=== PATIENT | male | born 1935 | race Caucasian/White ===

== ENCOUNTER → 2018-07-07 13:43 | Outpatient (CLI) | payer MEDICARE, OTHER, SELFPAY ==
--- NOTE | 2018-07-07 | DI.ECHO.S_ITS ---
[place] +---------+ Hospital +---------+ : : [address] : [address] : : : : [id number] : : : : Phone: [phone]+ Echocardiogram Report + + :Name: JUNE QUINTERO Study Date: 07/07/2018 Height: 63 in : :[facility] Weight: 190 lb : : Gender: Male BSA: 1.9 m2 : :: 1935 Age: 83 yrs BP: 130/44 mmHg: :Reason For Study: Murmur : : Performed By: Alicja Chatman : :Referring: DAVY THOMASON : + + Interpretation Summary Normal left ventricle size with ejection fraction 65-70%. Grade I diastolic dysfunction. Mildly dilated left atrium. Mild aortic regurgitation. Mild-moderately enlarged ascending aorta. Procedure: A two-dimensional transthoracic echocardiogram with color flow and Doppler was performed. The study quality was technically good. Most of the acoustic windows were suboptimal, but the best imaging was obtained from the subcostal window. The patient was in normal sinus rhythm during the exam. Left Ventricle: The left ventricle is normal in size. There is normal left ventricular wall thickness. The ejection fraction is estimated to be 65-70%. There are no focal wall motion abnormalities. Diastolic parameters suggest a relaxation abnormality of the left ventricle, consistent with probable normal filling pressures. Right Ventricle: The right ventricle grossly appears normal in size with probable normal systolic function. Atria: The left atrium is mildly dilated. Right atrial size is normal. The interatrial septum is intact with no evidence for an atrial septal defect. Mitral Valve: The mitral valve is normal in structure and function. There is no mitral regurgitation noted. Aortic Valve: The aortic valve is trileaflet. The aortic valve opens well. There is mild aortic regurgitation. Tricuspid Valve: The tricuspid valve is normal in structure and function. There is a trace or physiologic amount of tricuspid regurgitation. The right ventricular systolic pressure is estimated to be at least 32 mmHg based on an estimated right atrial pressure of 3 mm Hg. Pulmonic Valve: The pulmonic valve is not well seen, but is grossly normal. There is a trace or physiologic amount of pulmonic regurgitation. Great Vessels: The aortic root is normal size. The ascending aorta is mild- moderately enlarged. The aortic arch is normal in size. The IVC is of normal diameter and collapses greater than 50% with a sniff. This suggests a low right atrial pressure of 3 mm Hg. Pericardium/ Pleura There is no pericardial effusion. There is no pleural effusion. MMode/2D Measurements & Calculations LVIDd: 5.2 cm Ao root diam: 3.6 cm LVIDs: 2.4 cm Aortic Jxn: 2.9 cm FS: 55.1 % asc Aorta Diam: 4.1 cm IVSd: 0.85 cm Ao Arch Diam (Prox Trans): 2.8 cm LVPWd: 0.97 cm LV jewell. diameter/BSA (cm/m^2): 2.8 LV sys. diameter/BSA (cm/m^2): 1.2 LA dimension: 4.0 cm RA long axis: 5.3 cm LA A2 area: 22.9 cm2 RA area: 20.5 cm2 LA A4 area: 23.4 cm2 RA vol: 67.2 ml LA length (vol): 5.4 cm RA : 35.5 ml/m2 LA vol: 83.9 ml IVC diam: 1.8 cm LA vol index: 44.3 ml/m2 RVDd major: 5.8 cm RVD1 (basal): 3.7 cm RVD2 (mid): 2.6 cm Doppler Measurements & Calculations Ao V2 max: 164.7 cm/sec MV E max hany: 102.9 cm/sec Ao V2 mean: 99.8 cm/sec MV A max hany: 130.7 cm/sec Ao max P.8 mmHg MV E/A: 0.79 Ao mean P.9 mmHg Med Peak E' Hany: 7.1 cm/sec Ao V2 VTI: 32.6 cm E/E' med: 14.6 Lat Peak E' Hany: 8.7 cm/sec E/E' lat: 11.8 E/e' average: 13.2 MV dec time: 0.22 sec MV P1/2t: 66.3 msec TR max hany: 269.8 cm/sec MV P1/2t max hany: 103.4 cm/sec TR max P.1 mmHg MVA(P1/2t): 3.3 cm2 PA V2 max: 102.3 cm/sec PA V2 mean: 73.6 cm/sec PA mean P.4 mmHg PA Accel Time: 0.21 sec Electronically signed by: Micheline Lopez on Reading Physician:07/07/2018 04:02 PM
== END ==
PROVIDERS: Family Provider Internal Medicine; PCP Internal Medicine; Visit Provider Internal Medicine
DX: I35.1 Nonrheumatic aortic (valve) insufficiency (principal); R01.1 Cardiac murmur, unspecified; I77.810 Thoracic aortic ectasia
CPT/HCPCS: 93306

== ENCOUNTER → 2019-10-16 06:41 | Outpatient (CLI) | payer MEDICARE, OTHER, SELFPAY ==
--- NOTE | 2019-10-16 | DI.ECHO.S_ITS ---
[place] +---------+ Hospital +---------+ : : [address] : : : : [id number] : : : : Phone: [phone]+ Echocardiogram Report + + :Name: JUNE QUINTERO Study Date: 10/16/2019 Height: 73 in : :[facility] Weight: 196 lb : : Gender: Male BSA: 2.1 m2 : :: 1935 Age: 84 yrs BP: 150/68 mmHg: :Reason For Study: THORACIC AROTIC ECTASIA : :Ordering Physician: Carina Lima : :Zafar Performed By: Valeria Foster : :Referring: CARINA STEPHEN : + + Interpretation Summary 1) Normal left ventricular thickness, size, wall motion, and systolic function (EF 65-70%). 2) Normal right ventricular size and function. 3) No significant valvular abnormalities. 4) The ascending aorta is mildly enlarged at 4.1cm. 5) Hypertension present during the study (BP 150/68mmHg). 6) Compared to the Echo done 07/07/2018, no significant change. Procedure: A two-dimensional transthoracic echocardiogram with color flow and Doppler was performed. The study quality was technically adequate. Comparison is made with the echocardiogram of . The patient was in normal sinus rhythm during the exam. Left Ventricle: The left ventricle is normal in size and wall thickness. The ejection fraction is estimated to be 65-70%. Left ventricular systolic function is normal without focal wall motion abnormalities. Right Ventricle: The right ventricle is not well visualized. The right ventricle is grossly normal size. The right ventricular systolic function is normal. Atria: Both atria are normal in size. There is no Doppler evidence for an interatrial shunt. Mitral Valve: The mitral valve is normal in structure and function. There is trace mitral regurgitation. Aortic Valve: The aortic valve is trileaflet. The aortic valve opens well. There is no aortic valve stenosis. There is mild aortic regurgitation. Tricuspid Valve: The tricuspid valve is normal in structure and function. There is mild tricuspid regurgitation. The right ventricular systolic pressure is estimated to be at least 25 mmHg based on an estimated right atrial pressure of 3 mm Hg. Pulmonic Valve: The pulmonic valve is normal in structure and function. There is a trace or physiologic amount of pulmonic regurgitation. Great Vessels: The aortic root is normal size. The ascending aorta is mildly enlarged. The IVC is of normal diameter and collapses greater than 50% with a sniff. This suggests a low right atrial pressure of 3 mm Hg. Pericardium/ Pleura There is no pericardial effusion. There is no pleural effusion. MMode/2D Measurements & Calculations LVIDd: 5.3 cm LVOT diam: 2.1 cm LVIDs: 3.3 cm Ao root diam: 3.2 cm FS: 38.4 % asc Aorta Diam: 4.1 cm EPSS: 0.50 cm IVSd: 0.83 cm LVPWd: 0.96 cm LV jewell. diameter/BSA (cm/m^2): 2.5 LV sys. diameter/BSA (cm/m^2): 1.5 LA A2 area: 15.6 cm2 RA long axis: 4.3 cm LA A4 area: 16.7 cm2 RA area: 13.4 cm2 LA length (vol): 5.0 cm RA vol: 35.2 ml LA vol: 44.4 ml RA : 16.5 ml/m2 LA vol index: 20.8 ml/m2 IVC diam: 1.1 cm TAPSE: 2.2 cm Doppler Measurements & Calculations Ao V2 max: 137.3 cm/sec LVOT Max Hany: 137.1 cm/sec Ao V2 mean: 85.5 cm/sec LV V1 max P.5 mmHg Ao max P.5 mmHg LV V1 VTI: 27.7 cm Ao mean P.5 mmHg CLAIRE(I,D): 3.4 cm2 Ao V2 VTI: 28.1 cm CALIRE(V,D): 3.4 cm2 sev ratio: 0.99 CLAIRE indexed to BSA (cm^2/m^2): 1.6 MV E max hany: 99.9 cm/sec TR max hany: 236.2 cm/sec MV A max hany: 109.6 cm/sec TR max P.3 mmHg MV E/A: 0.91 PA V2 max: 93.7 cm/sec Med Peak E' Hany: 9.2 cm/sec PA V2 mean: 62.0 cm/sec E/E' med: 10.9 PA mean P.8 mmHg Lat Peak E' Hany: 8.5 cm/sec E/E' lat: 11.7 E/e' average: 11.3 MV dec time: 0.18 sec SV(LVOT): 95.2 ml Reading Physician:10:04 AM
[2019-10-16 09:07] LABS: Cholesterol 183 mg/dL (140-199); HDL Cholesterol 30 mg/dL (40-60); LDL Cholesterol Calculated 81 mg/dL (<100); Triglycerides 360 mg/dL (35-150)
== END ==
PROVIDERS: Family Provider Internal Medicine; PCP Internal Medicine; Referring Provider Internal Medicine Cardiovascular Disease; Visit Provider Internal Medicine Cardiovascular Disease
DX: I08.2 Rheumatic disorders of both aortic and tricuspid valves (principal); I77.810 Thoracic aortic ectasia; I10 Essential (primary) hypertension
CPT/HCPCS: 36415; 80061; 93306

== ENCOUNTER → 2019-11-22 13:13 | Outpatient (CLI) | payer MEDICARE, OTHER, SELFPAY ==
[2019-11-22 15:07] LABS: Add Manual Diff / Slide Review NO; Basophils Absolute Auto 0 /uL (0-100); Basophils Percent Auto 0.4 % (0-2); Eosinophils Absolute Auto 200 /uL (0-450); Eosinophils Percent Auto 2.7 % (2-4); Hematocrit 42.9 % (41-53); Hemoglobin 14.8 g/dL (13.5-17.5); Lymphocytes Absolute Auto 2400 /uL (1100-4500); Lymphocytes Percent Auto 34.3 % (25-40); Mean Corpuscular HGB Conc 34.4 % (30-36); Mean Corpuscular Hemoglobin 31.7 PG (26-34); Mean Corpuscular Volume 91.9 fL (80-100); Monocytes Absolute Auto 900 /uL (0-900); Monocytes Percent Auto 12.6 % (3-14); Neutrophils Absolute Auto 3500 /uL (1500-7000); Platelet Count 226 X10^3/uL (150-400); Red Blood Cell Count 4.67 X10^6/uL (4.5-5.9); Red Cell Distribution Width 13.4 % (11.6-14.8); White Blood Cell Count 7.1 X10^3/uL (4.5-11.0)
[2019-11-22 15:15] LABS: BUN Creatinine Ratio 21.3 (6-22); Blood Urea Nitrogen 19 mg/dL (9-20); Calcium 9.4 mg/dL (8.4-10.2); Carbon Dioxide 30 mmol/L (22-32); Chloride 103 mmol/L (98-107); Estimated Glomerular Filt Rate > 60.0 mL/min (>60); Glucose 97 mg/dL (80-110); HEMOLYSIS < 15 (0-50); Potassium 4.4 mmol/L (3.4-5.1); Sodium 138 mmol/L (137-145)
[2019-11-22 15:16] LABS: C-Reactive Protein Quant < 0.5 mg/dL (<1.0)
[2019-11-22 15:49] LABS: Erythrocyte Sedimentation Rate 8 MM/HR (0-15)
== END ==
PROVIDERS: Family Provider Internal Medicine; PCP Internal Medicine; Referring Provider Physician Assistant; Visit Provider Physician Assistant
DX: M79.675 Pain in left toe(s) (principal)
CPT/HCPCS: 36415; 80048; 84550; 85025; 85651; 86140

== ENCOUNTER 2020-04-12 08:24 | Emergency (ER) | payer MEDICARE, OTHER, SELFPAY ==
[2020-04-12 08:38] VITALS: BP 133/60; PULSE 66; RESP 18; TEMP 36.5; O2SAT 97; BMI 25.4
--- NOTE | 2020-04-12 08:53 | ED_ITS ---
HPI - Extremity Problem General Chief complaint: Extremity Problem,Nontraumatic Stated complaint: LT FOOT SWOLLEN/ PAIN Time Seen by Provider: 04/12/20 08:49 Source: patient Mode of arrival: Family Vehicle Limitations: no limitations History of Present Illness HPI Narrative: The patient is an 85-year-old male who presents with left foot swelling which started yesterday he is concerned he may have a blood clot. Of DVT he has not had any recent travel he has no calf pain no lower leg swelling redness or fever. He also thought it might be gout which he typically does get in his great toe however he has no erythema or pain in that area. He denies any injury. Complaint: extremity swelling Onset (ago): day(s) Location: right and lower extremity (Foot) Related Data Allergies Allergy/AdvReac Type Severity Reaction Status Date / Time No Known Drug Allergies Allergy Verified 04/12/20 08:42 Review of Systems Review of Systems Narrative: GENERAL: Denies chills,fever HEENT: Denies throat pain RESPIRATORY: Denies dyspnea, cough, wheezing CARDIOVASCULAR: Denies chest pain, palpitations GASTROINTESTINAL: Denies nausea, vomiting MUSCULOSKELETAL: Left foot swelling SKIN: No rash, no laceration, no pruritus NEUROLOGIC: Denies weakness, dizziness, headache, numbness 8 point review of systems is negative except for those stated above and HPI Patient History Social History Smoking Status: Never smoker Smoking Status: Never smoker alcohol intake frequency: 0-2 drinks per day Substance Use Type: does not use Exam Initial Vital Signs Initial Vital Signs: Vital Signs Temperature 97.7 F 04/12/20 08:38 Pulse Rate 66 04/12/20 08:38 Respiratory Rate 18 04/12/20 08:38 Blood Pressure 133/60 04/12/20 08:38 Pulse Oximetry 97 04/12/20 08:38 GENERAL: Well-appearing, well-nourished and in no acute distress. CARDIOVASCULAR: peripheral pulses in tact, cap refill <2 sec RESPIRATORY: No respiratory distress, speaks in full sentences without difficulty EXTREMITIES: Normal range of motion, no clubbing or edema. Neurovascularly intact. Left lower extremity he has no appreciable swelling left foot is non erythematous nonpainful good strong distal pedal pulse. No ankle deformity. No calf pain no lower leg swelling. NEUROLOGICAL: Cranial nerves II through XII grossly intact. Normal gait and speech. SKIN: Warm, dry, no petechiae, no rashes or lesions. Course Vital Signs Vital signs: Vital Signs - 8 hr 04/12/20 08:38 Temperature 97.7 F Pulse Rate 66 Respiratory Rate 18 Blood Pressure 133/60 Pulse Oximetry 97 MDM - Extremity (Nontraumatic) MDM Narrative Medical decision making narrative: Patient has had no injury he has no risk fa ctors for DVT. He has minimal swelling if any of his left foot. There is no erythema. At this time I see no need for any imaging or further testing or treatment. I recommend monitoring. Discharge Plan Departure Patient Disposition: Home Clinical Impression: Worried well Discharge Date/Time: 04/12/20 09:08 Instructions: DI for Foot Pain Activity Restrictions/Additional Instructions: *You have been diagnosed with at this time no concern for blood clot *What to do: At this time you have small amount of swelling on her left foot. I recommend elevating and icing if needed. Please monitor for worsening symptoms such as redness, significant increase in swelling, calf pain or leg pain *Continue to take medications as directed *Follow up with your primary care provider in 2-3 days *Return to ER if you should have any new, worsening or concerning symptoms Referrals: Vince Hagan MD [Primary Care Provider] -
== END 2020-04-12 09:08 | disposition home or self-care (01) ==
LOC: ED 09:11
PROVIDERS: Emergency Provider Emergency Medicine; Family Provider Internal Medicine; PCP Internal Medicine
DX: R60.9 Edema, unspecified (principal)
CPT/HCPCS: 99281

== ENCOUNTER → 2020-04-15 19:06 | Outpatient (ROUT) | payer MEDICARE, OTHER, SELFPAY ==
[2020-04-15 19:21] LABS: Alanine Aminotransferase 19 IU/L (<50); Albumin 4.3 g/dL (3.5-5.0); Albumin Globulin Ratio 1.5 (1.0-2.8); Alkaline Phosphatase 56 U/L (38-126); Aspartate Aminotransferase 28 IU/L (17-59); BUN Creatinine Ratio 23.9 (6-22); Bilirubin Total 0.8 mg/dL (0.2-1.3); Blood Urea Nitrogen 21 mg/dL (9-20); Calcium 9.4 mg/dL (8.4-10.2); Carbon Dioxide 32 mmol/L (22-32); Chloride 104 mmol/L (98-107); Estimated Glomerular Filt Rate > 60.0 mL/min (>60); Globulin 2.9 g/dL (1.7-4.1); Glucose 109 mg/dL (80-110); HEMOLYSIS < 15 (0-50); Potassium 4.7 mmol/L (3.4-5.1); Sodium 140 mmol/L (137-145); Total Protein 7.2 g/dL (6.3-8.2); Uric Acid 7.8 mg/dL (3.5-8.5)
== END ==
PROVIDERS: Family Provider Internal Medicine; PCP Internal Medicine; Visit Provider Internal Medicine
DX: M10.9 Gout, unspecified (principal); M79.89 Other specified soft tissue disorders
CPT/HCPCS: 80053; 84550

== ENCOUNTER → 2020-04-18 10:47 | Outpatient (CLI) | payer MEDICARE, OTHER, SELFPAY ==
--- NOTE | 2020-04-18 | DI.US.S_ITS ---
PROCEDURE: US PERIPH VENOUS LOW EXTREM LT INDICATIONS: SWELLING OF LEFT FOOT TECHNIQUE: Real-time imaging, as well as color and pulse Doppler interrogation, were performed of the lower extremity deep veins from the inguinal ligament to the popliteal fossa. COMPARISON: [facility], CR, XR FOOT LT MIN 3V, 04/18/2020, 11:08. FINDINGS: The common femoral, femoral and popliteal veins are normally compressible, and free of intraluminal thrombus. Color and pulse Doppler demonstrate normal phasic intraluminal flow. There is normal augmentation response to distal compression maneuver. IMPRESSION: Negative for deep venous thrombosis. Dictated by: Kirit Thomson M.D. on 04/18/2020 at 11:10 Approved by: Kirit Thomson M.D. on 04/18/2020 at 11:11
--- NOTE | 2020-04-18 | DI.RAD.S_ITS ---
PROCEDURE: XR FOOT LT MIN 3V INDICATIONS: Other specified soft tissue disorders and Lt ft pn TECHNIQUE: 3 views of the foot were acquired. COMPARISON: None. FINDINGS: Bones: There is an irregular appearance at the base of the 5th metatarsal. Calcaneal spur is present. Soft tissues: No tibiotalar joint effusion. Achilles tendon appears normal. IMPRESSION: Irregular appearance at the base of the 5th metatarsal suggestive of old injury. Dictated by: Amna Roman M.D. on 04/18/2020 at 15:42 Approved by: Amna Roman M.D. on 04/18/2020 at 15:42
== END ==
PROVIDERS: Family Provider Internal Medicine; PCP Internal Medicine; Referring Provider Internal Medicine; Visit Provider Internal Medicine
DX: R22.42 Localized swelling, mass and lump, left lower limb (principal)
CPT/HCPCS: 73630; 93971

== ENCOUNTER → 2020-05-05 07:55 | Outpatient (CLI) | payer MEDICARE, OTHER, SELFPAY ==
[2020-05-05 09:06] LABS: Uric Acid 6.9 mg/dL (3.5-8.5)
== END ==
PROVIDERS: Family Provider Internal Medicine; PCP Internal Medicine; Referring Provider Internal Medicine; Visit Provider Internal Medicine
DX: M10.00 Idiopathic gout, unspecified site (principal)
CPT/HCPCS: 36415; 84550

== ENCOUNTER → 2020-06-24 16:04 | Outpatient (CLI) | payer MEDICARE, OTHER, SELFPAY ==
[2020-06-24] MEDS: COVID-19 VACC #1, MRNA(MOD) 100 MCG/0.5 ML VIAL IM (16:24)
== END ==
PROVIDERS: Family Provider Internal Medicine; PCP Internal Medicine; Visit Provider Internal Medicine
DX: Z23 Encounter for immunization (principal)
CPT/HCPCS: 0011A; 91301

== ENCOUNTER → 2020-07-23 14:24 | Outpatient (CLI) | payer MEDICARE, OTHER, SELFPAY ==
[2020-07-23] MEDS: COVID-19 VACC #2, MRNA(MOD) 100 MCG/0.5 ML VIAL IM (14:34)
== END ==
PROVIDERS: Family Provider Internal Medicine; PCP Internal Medicine; Visit Provider Internal Medicine
DX: Z23 Encounter for immunization (principal)
CPT/HCPCS: 0012A; 91301

== ENCOUNTER → 2021-05-06 12:15 | Outpatient (CLI) | payer MEDICARE, OTHER, SELFPAY ==
[2021-05-06 14:36] LABS: BUN Creatinine Ratio 17.2 (6-22); Blood Urea Nitrogen 17 mg/dL (9-20); Calcium 9.4 mg/dL (8.4-10.2); Carbon Dioxide 30 mmol/L (22-32); Chloride 101 mmol/L (98-107); Cholesterol 199 mg/dL (140-199); Estimated Glomerular Filt Rate > 60.0 mL/min (>60); Glucose 109 mg/dL (80-110); HDL Cholesterol 44 mg/dL (40-60); HEMOLYSIS < 15 (0-50); LDL Cholesterol Calculated 124 mg/dL (<100); Potassium 4.5 mmol/L (3.4-5.1); Sodium 140 mmol/L (137-145); Triglycerides 154 mg/dL (35-150)
== END ==
PROVIDERS: Family Provider Internal Medicine; PCP Internal Medicine; Referring Provider Internal Medicine; Visit Provider Internal Medicine
DX: I10 Essential (primary) hypertension (principal); E78.1 Pure hyperglyceridemia
CPT/HCPCS: 36415; 80048; 80061

== ENCOUNTER → 2021-10-12 14:56 | Outpatient (CLI) | payer MEDICARE, OTHER, SELFPAY ==
--- NOTE | 2021-10-12 | DI.ECHO.S_ITS ---
[place] +---------+ Hospital +---------+ : : [address] : [address] : : : : [id number] : : : : Phone: [phone]+ Echocardiogram Report + + :Name: JUNE QUINTERO Study Date: 10/12/2021 Height: 73 in : :[facility]: Weight: 188 lb : : Gender: Male BSA: 2.1 m2 : :: 1935 Age: 86 yrs BP: 182/86 mmHg: :Reason For Study: Aortic, Ascending Aneurysm : :Ordering Physician: ALIDA, : :NEFTALI Welch Performed By: Bennie Chan : :Referring: NEFTALI IRWIN : + + Interpretation Summary 1) Normal left ventricular thickness, size, wall motion, and systolic function (EF 60-65%). 2) Normal right ventricular size and function. 3) No significant valvular abnormalities. 4) The ascending aorta is mildly enlarged at 4.0cm. 5) Hypertension present during the study (BP 182/86mm Hg). 6) Compared to the Echo done 10/16/2019, no significant change. Procedure: A two-dimensional transthoracic echocardiogram with color flow and Doppler was performed. The study quality was technically adequate. Comparison is made with the echocardiogram of 10/16/2019. Left Ventricle: The left ventricle is normal in size. Left ventricular wall thickness is mildly increased. Left ventricular systolic function is normal. The ejection fraction is estimated to be 60-65%. There are no focal wall motion abnormalities. Diastolic function could not be accurately assessed due to contradictory data. Right Ventricle: The right ventricle is normal in size and function. Atria: Both atria are normal in size. The interatrial septum grossly appears intact with no obvious evidence for an atrial septal defect. Mitral Valve: The mitral valve is normal in structure and function. There is trace mitral regurgitation. Aortic Valve: The aortic valve is normal in structure and function. There is no aortic valve stenosis. There is trace aortic regurgitation. Tricuspid Valve: The tricuspid valve is normal in structure and function. There is trace tricuspid regurgitation. Pulmonary artery pressures cannot be estimated because of the lack of a measurable TR jet velocity. Pulmonic Valve: The pulmonic valve is normal in structure and function. There is no pulmonic valvular regurgitation. Great Vessels: The aortic root is normal size. The ascending aorta is mildly enlarged. The IVC is of normal diameter and collapses greater than 50% with a sniff. This suggests a low right atrial pressure of 3 mm Hg. Pericardium/ Pleura There is no pericardial effusion. There is no pleural effusion. MMode/2D Measurements & Calculations LVIDd: 4.9 cm LVOT diam: 2.0 cm LVIDs: 2.7 cm Ao root diam: 3.4 cm FS: 44.9 % asc Aorta Diam: 4.0 cm IVSd: 1.2 cm LVPWd: 1.2 cm LV jewell. diameter/BSA (cm/m^2): 2.3 LV sys. diameter/BSA (cm/m^2): 1.3 LA dimension: 3.2 cm RA long axis: 4.5 cm LA A2 area: 14.3 cm2 LA A4 area: 14.8 cm2 LA length (vol): 4.5 cm LA vol: 40.1 ml LA vol index: 19.1 ml/m2 TAPSE_phl: 2.9 cm Doppler Measurements & Calculations Ao V2 max: 152.0 cm/sec LVOT Max Hany: 143.0 cm/sec Ao V2 mean: 105.0 cm/sec LV V1 max P.2 mmHg Ao max P.0 mmHg LV V1 VTI: 29.3 cm Ao mean P.0 mmHg CLAIRE(I,D): 2.9 cm2 Ao V2 VTI: 32.1 cm CLAIRE(V,D): 3.0 cm2 sev ratio: 0.91 CLAIRE indexed to BSA (cm^2/m^2): 1.4 MV E max hany: 99.4 cm/sec SV(LVOT): 92.0 ml MV A max hany: 108.0 cm/sec MV E/A: 0.92 Med Peak E' Hany: 7.5 cm/sec E/E' med: 13.3 Lat Peak E' Hany: 9.2 cm/sec E/E' lat: 10.8 E/e' average: 12.1 MV dec time: 0.19 sec AV VR_phl: 0.94 MV P1/2t-pr_phl: 55.0 msec CLAIRE(VTI)/BSA_phl: 1.4 Reading Physician:04:49 PM
== END ==
PROVIDERS: Family Provider Internal Medicine; PCP Internal Medicine; Referring Provider Internal Medicine; Visit Provider Internal Medicine
DX: I77.810 Thoracic aortic ectasia (principal); I77.89 Other specified disorders of arteries and arterioles
CPT/HCPCS: 93306

== ENCOUNTER 2021-10-16 07:45 | Inpatient (IN) | payer MEDICARE, OTHER, SELFPAY ==
[2021-10-16] VITALS (17 sets, daily range): BP systolic 128–192; BP diastolic 60–90; PULSE 74–95; RESP 17–18; TEMP 36.8–36.9; O2SAT 93–99; BMI 25.2
--- NOTE | 2021-10-16 | DI.CT.S_ITS ---
PROCEDURE: CT FOOT RIGHT WITH CON INDICATIONS: RIGHT FOOT INFECTION TECHNIQUE: Noncontrast 1-1.5 mm axial sections acquired from above the tibiotalar joint to the bottom of the calcaneus, with coronal and sagittal reformats. COMPARISON: None. FINDINGS: Image quality: Excellent. Bones: Right foot alignment is anatomic. No acute right foot fracture or dislocation is seen. No suspicious intraosseous lesion. Osteoarthritic changes are noted throughout left ankle and foot with joint space narrowing, subchondral sclerosis and small marginal osteophyte formation more prominent involving talonavicular joint and TMT joints. Small plantar and dorsal calcaneal enthesophytes are seen. No bony erosive changes. No suspicious intraosseous lesion. Soft tissues: Diffuse soft tissue edema and swelling surrounding ankle joint extending to right foot with skin thickening and underlying soft tissue edema and fluid over plantar aspect of 2nd and 3rd MTP joints. No discrete peripherally enhancing drainable fluid collection is noted. There is no full-thickness extensor or flexor tendon rupture. No abnormal soft tissue calcifications. Achilles tendon is intact. Plantar fascia is intact. IMPRESSION: 1. Extensive cellulitis in right ankle and foot as described above. No discrete drainable abscess collection is seen. 2. Right foot and ankle joint osteoarthritis. No fracture or dislocation. No evidence of osteomyelitis. Dictated by: Adan Virgen M.D. on 10/16/2021 at 16:12 Approved by: Adan Virgen M.D. on 10/16/2021 at 16:17
--- NOTE | 2021-10-16 09:10 | ED_ITS ---
HPI - Skin/Abscess/Foreign Bdy General Chief complaint: Skin/Abscess/Foreign Body Stated complaint: infected rt foot Time Seen by Provider: 10/16/21 08:29 History of Present Illness HPI narrative: Patient is an 86-year-old male history of hypertension and gout presenting today with right foot infection. He was seen and evaluated yesterday at walk-in clinic started on couple of overnight it got significantly worse. He has had a callus on the bottom of his foot for number of weeks yesterday started having some erythema and warmth the of the foot. However today he woke up with blis ters on his 2nd and 3rd toe and significant swelling over most of the top of his foot. No history of MRSA. He has had chills for the last day or so. No fever. Related Data Home Medications Medication Instructions Recorded Confirmed allopurinol 100 mg tablet 100 mg PO DAILY 10/15/21 10/16/21 amlodipine 10 mg tablet 10 mg PO DAILY 10/15/21 10/16/21 Previous Rx's Medication Instructions Recorded cephalexin 500 mg capsule 500 mg PO QID 10 Days #40 cap 10/15/21 Allergies Allergy/AdvReac Type Severity Reaction Status Date / Time No Known Drug Allergies Allergy Verified 10/16/21 08:10 Review of Systems Review of Systems Narrative: GENERAL: Denies chills, fatigue, malaise, fever, sweats, travel HEENT: Denies sinus pain, ear pain, sore throat, difficulty swallowing, neck pain RESPIRATORY: Denies dyspnea, cough, wheezing, hemoptysis, sputum. CARDIOVASCULAR: Denies chest pain, palpitations, orthopnea, edema GASTROINTESTINAL: Denies nausea, vomiting, abdominal pain, diarrhea, constipation, melena. : Denies dysuria, frequency, incontinence, hematuria, urinary retention, flank pain. MUSCULOSKELETAL: Denies weakness, joint pain, or bony pain SKIN: See HPI NEUROLOGIC: Denies weakness, dizziness, headache, numbness, change in speech, confusion PSYCHIATRIC: No concerning psychosocial issues. 12 point review of systems is negative except for those stated above and HPI Patient History Medical History Gout Hypertension Social History household members: spouse Smoking Status: Never smoker Smoking Status: Never smoker alcohol intake frequency: 0-2 drinks per day Substance Use Type: does not use Exam Initial Vital Signs Initial Vital Signs: Vital Signs Temperature 98.4 F 10/16/21 08:11 Pulse Rate 83 10/16/21 08:11 Respiratory Rate 18 10/16/21 08:11 Blood Pressure 137/83 10/16/21 08:11 Pulse Oximetry 99 10/16/21 08:11 GENERAL: Alert pleasant [id number] 86-year-old male HEENT: Head atraumatic,EOMI, pupils reactive, face symmetric, moist mucous membranes CARDIOVASCULAR: Regular rate and rhythm without murmurs, rubs or gallops. RESPIRATORY: Breath sounds equal bilaterally, no wheezes rales or rhonchi. ABDOMEN: Soft, nontender. Normoactive bowel sounds all 4 quadrants. No guarding or rebound. EXTREMITIES: Normal range of motion, no clubbing or edema. Neurovascularly intact NEUROLOGICAL: Alert and oriented x4.Normal gait and speech. SKIN: Right foot erythematous most of the top. Black blisters at 2nd and 3rd metatarsal Course Orders Ordered: ED Orders 10/16/21 09:30 CBC Auto Diff [Complete Blood Count AUTO DIFF] Stat CMP [Comprehensive Metabolic Panel] Stat Lactate (Lactic Acid) Stat Procalcitonin Stat 10/16/21 10:19 Blood Culture Stat 10/16/21 10:39 COVID19 -Nasal RAPID/Pre-Proc Stat 10/16/21 11:55 Wound Culture and Gram Stain Stat Acetaminophen (Acetaminophen 325 Mg Tablet) 650 mg PO Q4HR PRN PRN Reason: Fever > 100.4 Allopurinol (Allopurinol 100 Mg Tablet) 100 mg PO DAILY [facility] Amlodipine Besylate (Amlodipine 5 Mg Tablet) 10 mg PO DAILY [facility] Bisacodyl (Bisacodyl 10 Mg Supp) 10 mg OR DAILY PRN PRN Reason: Constipation Clindamycin HCl (Clindamycin 150 Mg Capsule) 300 mg PO Q8HR [facility] Enoxaparin Sodium (Enoxaparin 40 Mg/0.4 Ml Syringe) 40 mg SUBCUT DAILY [facility] Famotidine (Famotidine 20 Mg Tablet) 40 mg PO BEDTIME [facility] Cefepime HCl 1 gm/ Sodium (Chloride) 100 mls @ 200 mls/hr IV Q12H [facility] Last Admin: 10/16/21 15:56 Dose: 200 mls/hr Documented by: VIRINOTT Doxycycline Hyclate 100 mg/ (Sodium Chloride) 100 mls @ 100 mls/hr IV Q12H [facility] Lactobacillus Acidophilus (Lactobacillus Acidophilus Tablet) 1 each PO TIDWM [facility] Morphine Sulfate (Morphine 2 Mg/Ml Inj) 2 mg IV Q4H PRN PRN Reason: Breakthrough pain only (8-10) Naloxone HCl (Naloxone 0.4 Mg/Ml Vial) 0.2 mg IV Q2MIN PRN PRN Reason: Opiate Reversal Ondansetron HCl (Ondansetron 4 Mg/2 Ml Inj) 4 mg IV Q8HR PRN PRN Reason: Nausea And Vomiting Sennosides (Sennosides 8.6 Mg Tablet) 17.2 mg PO BEDTIME [facility] Tramadol HCl (Tramadol 50 Mg Tablet) 50 mg PO Q4H PRN PRN Reason: Pain, Moderate (4-6) Discontinued Medications Ceftriaxone Sodium 1,000 mg/ (Sodium Chloride) 100 mls @ 200 mls/hr IV NOW ONE Stop: 10/16/21 09:12 Last Infusion: 10/16/21 11:00 Dose: 0 mls/hr Documented by: Admin: 10/16/21 10:20 Dose: 200 mls/hr Documented by: VERONA Vancomycin HCl/Dextrose (Vancomycin) 1,500 mg in 300 mls @ 200 mls/hr IV NOW ONE Stop: 10/16/21 11:30 Last Infusion: 10/16/21 12:47 Dose: 0 mls/hr Documented by: Admin: 10/16/21 10:59 Dose: 200 mls/hr Documented by: VERONA Vital Signs Vital signs: Vital Signs - 8 hr 10/16/21 09:30 10/16/21 10:29 10/16/21 10:30 Pulse Rate 83 83 82 Respiratory Rate 18 Blood Pressure 141/66 H Pulse Oximetry 98 98 98 10/16/21 10:42 10/16/21 11:00 10/16/21 11:30 Pulse Rate 83 81 80 Respiratory Rate Blood Pressure 137/67 142/66 H 143/65 H Pulse Oximetry 98 98 96 10/16/21 12:00 10/16/21 12:30 10/16/21 13:00 Pulse Rate 74 86 90 Respiratory Rate Blood Pressure 128/60 145/69 H 148/82 H Pulse Oximetry 95 95 95 10/16/21 13:30 10/16/21 13:31 10/16/21 14:00 Pulse Rate 86 95 H 88 Respiratory Rate Blood Pressure 192/90 H 130/63 Pulse Oximetry 97 97 97 MDM - Skin/Abscess/Foreign Bdy Lab Data Result diagrams: 10/16/21 09:30 10/16/21 09:30 Labs: Lab Results 10/16/21 10/16/21 10/16/21 Range/Units 09:30 09:30 09:30 WBC 21.3 H (4.5-11.0) X10^3/uL RBC 4.07 L (4.5-5.9) X10^6/uL Hgb 12.6 L (13.5-17.5) g/dL Hct 37.4 L (41-53) % MCV 91.8 (80-100) fL MCH 30.9 (26-34) PG MCHC 33.6 (30-36) % RDW 13.4 (11.6-14.8) % Plt Count 227 (150-400) X10^3/uL Neut % (Auto) 83.2 H (50-75) % Lymph % (Auto) 7.1 L (25-40) % [place] % (Auto) 9.1 (3-14) % Eos % (Auto) 0.5 L (2-4) % Baso % (Auto) 0.1 (0-2) % Neut # (Auto) 27922 H (4824-2214) /uL Lymph # (Auto) 1500 (4612-6123) /uL [place] # (Auto) 1900 H (0-900) /uL Eos # (Auto) 100 (0-450) /uL Baso # (Auto) 0 (0-100) /uL Sodium 135 L (137-145) mmol/L Potassium 3.6 (3.4-5.1) mmol/L Chloride 100 (98-107) mmol/L Carbon Dioxide 30 (22-32) mmol/L BUN 27 H (9-20) mg/dL Creatinine 1.01 (0.66-1.25) mg/dL Estimated GFR > 60 (>60) mL/min BUN/Creatinine Ratio 26.7 H (6-22) Glucose 137 H (80-110) mg/dL Lactate 1.7 (0.7-2.1) mmol/L Calcium 8.2 L (8.4-10.2) mg/dL Total Bilirubin 1.2 (0.2-1.3) mg/dL AST 18 (17-59) IU/L ALT 14 (<50) IU/L Alkaline Phosphatase 58 (38-126) U/L Total Protein 6.5 (6.3-8.2) g/dL Albumin 3.5 (3.5-5.0) g/dL Globulin 3.0 (1.7-4.1) g/dL Albumin/Globulin Ratio 1.2 (1.0-2.8) Procalcitonin 1.18 H (<0.5) ng/mL SARS-CoV-2 (PCR) (Negative) 10/16/21 Range/Units 10:39 WBC (4.5-11.0) X10^3/uL RBC (4.5-5.9) X10^6/uL Hgb (13.5-17.5) g/dL Hct (41-53) % MCV (80-100) fL MCH (26-34) PG MCHC (30-36) % RDW (11.6-14.8) % Plt Count (150-400) X10^3/uL Neut % (Auto) (50-75) % Lymph % (Auto) (25-40) % [place] % (Auto) (3-14) % Eos % (Auto) (2-4) % Baso % (Auto) (0-2) % Neut # (Auto) (0524-9160) /uL Lymph # (Auto) (6376-9285) /uL [place] # (Auto) (0-900) /uL Eos # (Auto) (0-450) /uL Baso # (Auto) (0-100) /uL Sodium (137-145) mmol/L Potassium (3.4-5.1) mmol/L Chloride (98-107) mmol/L Carbon Dioxide (22-32) mmol/L BUN (9-20) mg/dL Creatinine (0.66-1.25) mg/dL Estimated GFR (>60) mL/min BUN/Creatinine Ratio (6-22) Glucose (80-110) mg/dL Lactate (0.7-2.1) mmol/L Calcium (8.4-10.2) mg/dL Total Bilirubin (0.2-1.3) mg/dL AST (17-59) IU/L ALT (<50) IU/L Alkaline Phosphatase (38-126) U/L Total Protein (6.3-8.2) g/dL Albumin (3.5-5.0) g/dL Globulin (1.7-4.1) g/dL Albumin/Globulin Ratio (1.0-2.8) Procalcitonin (<0.5) ng/mL SARS-CoV-2 (PCR) Negative (Negative) MDM Narrative Medical decision making narrative: The patient had significant worsening of redness and blisters appear on his foot over night. Concern for probably more severe infection. He has a white count 11390 with an elevated procalcitonin of 1.1. Lactate is normal. He otherwise appears well. He has a is on Keflex as an outpatient of probably needs IV antibiotics. Blister started draining after I measured it culture was taken from the fluid. He is given Rocephin and vancomycin here in the emergency department. Dr. Flores accepts patient Discharge Plan Departure Patient Disposition: Admitted As Inpatient Clinical Impression: Cellulitis Admit Date/Time: 10/16/21 14:24 Admit Provider: Chris Connor
[2021-10-16 09:40] LABS: Add Manual Diff / Slide Review NO; Basophils Absolute Auto 0 /uL (0-100); Basophils Percent Auto 0.1 % (0-2); Eosinophils Absolute Auto 100 /uL (0-450); Eosinophils Percent Auto 0.5 % (2-4); Hematocrit 37.4 % (41-53); Hemoglobin 12.6 g/dL (13.5-17.5); Lymphocytes Absolute Auto 1500 /uL (1100-4500); Lymphocytes Percent Auto 7.1 % (25-40); Mean Corpuscular HGB Conc 33.6 % (30-36); Mean Corpuscular Hemoglobin 30.9 PG (26-34); Mean Corpuscular Volume 91.8 fL (80-100); Monocytes Absolute Auto 1900 /uL (0-900); Monocytes Percent Auto 9.1 % (3-14); Neutrophils Absolute Auto 17700 /uL (1500-7000); Neutrophils Percent Auto 83.2 % (50-75); Platelet Count 227 X10^3/uL (150-400); Red Blood Cell Count 4.07 X10^6/uL (4.5-5.9); Red Cell Distribution Width 13.4 % (11.6-14.8); White Blood Cell Count 21.3 X10^3/uL (4.5-11.0)
[2021-10-16 09:51] LABS: Alanine Aminotransferase 14 IU/L (<50); Albumin 3.5 g/dL (3.5-5.0); Albumin Globulin Ratio 1.2 (1.0-2.8); Alkaline Phosphatase 58 U/L (38-126); Aspartate Aminotransferase 18 IU/L (17-59); BUN Creatinine Ratio 26.7 (6-22); Bilirubin Total 1.2 mg/dL (0.2-1.3); Blood Urea Nitrogen 27 mg/dL (9-20); Calcium 8.2 mg/dL (8.4-10.2); Carbon Dioxide 30 mmol/L (22-32); Chloride 100 mmol/L (98-107); Estimated Glomerular Filt Rate > 60 mL/min (>60); Glucose 137 mg/dL (80-110); HEMOLYSIS < 15 (0-50); Potassium 3.6 mmol/L (3.4-5.1); Sodium 135 mmol/L (137-145); Total Protein 6.5 g/dL (6.3-8.2)
[2021-10-16 09:52] LABS: Lactate (Lactic Acid) 1.7 mmol/L (0.7-2.1)
[2021-10-16 10:08] LABS: Procalcitonin 1.18 ng/mL (<0.5)
[2021-10-16] MEDS: cefTRIAXone 1,000 MG in SODIUM CHLORIDE 0.9% 100 ML 200 MG IV (10:20)
[2021-10-16 10:55] LABS: COVID19 -Nasal RAPID Negative (Negative)
[2021-10-16] MEDS: VANCOMYCIN 1,500 MG/300 ML PIGGYBACK 200 MG IV (10:59)
--- NOTE | 2021-10-16 15:31 | P.HP_ITS ---
History of Present Illness History of Present Illness Date Patient Seen: 10/16/21 Chief complaint: infected rt foot Narrative: THIS IS A VERY PLEASANT 86-YEAR-OLD MALE FOR PAST MEDICAL HISTORY SIGNIFICANT FOR HYPERTENSION AND GOUT. PATIENT DENIED PRIOR DIAGNOSIS OF DIABETES OR CAD. DENIES ANY RECENT INJURY HOWEVER REPORTED A CHRONIC CALLUS LIKE LESION ON THE BOTTOM OF HIS FOOT. HE AL SO REPORTED A RECENT TRAVEL TO [place]. PATIENT PRESENTED TO THE HOSPITAL WITH SWELLING TO THE RIGHT LOWER EXTREMITY. THIS SAME FOOT WHICH CONTAINED THE CALLUS. PATIENT STATED THAT HE WENT TO VACATION AND HAD MULTIPLE INSTANCE OF SWIMMING IN STANDING WATER IN DIFFERENT POLLS WHILE ON VACATION. HE STATED THAT ONCE HE GOT BACK IN THE [facility] HIS LOWER EXTREMITY ON THE RIGHT STARTING SHOWING SIGN OF SWELLING. HE ALSO REPORTED SOME CHILLS. INCREASING REDNESS AND PAIN TO THE RIGHT LOWER EXTREMITY ALSO NOTED BY PATIENT. THIS WAS CONFIRMED BY HIS AT BEDSIDE. PATIENT DECIDED TO GO TO 1 OF THE LOCAL WALK-IN CLINIC AND WAS GIVEN KEFLEX. HOWEVER HE STATED THAT SINCE YESTERDAY THE AREA IS GETTING EVEN WORSE. REPORTING INCREASED PAIN. INCREASED CHILLS ALSO NOTED. HE REPORTED SOME MILD D RAINAGE AND A COUPLE OF BLISTERING LESION DEVELOPED AT THIS SITE WELL. IN THE ER, HIS VITAL SIGNS WERE FAIRLY STABLE. NO SIGNIFICANT INCREASE IN TEMPERATURE APPRECIATED. HOWEVER HIS WHITE BLOOD CELL COUNT IS ABOVE 20,000. HIS PLATELET COUNT IS FAIRLY STABLE ABOVE THE 200K KIDNEY FUNCTIONS WELL LIVER FUNCTIONS FAIRLY STABLE. LACTATE LEVEL WAS REASONABLE HOWEVER PROCALCITONIN WAS SLIGHTLY ELEVATED. Patient History Medical History Gout Hypertension Family & Social History Safety & Behavioral: Feels Safe in Current Yes Environment Been Physically Hurt or No Threatened By a Person Tobacco & Substance use: Smoking Status Never smoker alcohol intake frequency 0-2 drinks per day Substance Use Type does not use Meds Home Medications and Allergies Home Medications Medication Instructions Recorded Confirmed Type allopurinol 100 mg tablet 100 mg PO DAILY 10/15/21 10/16/21 History amlodipine 10 mg tablet 10 mg PO DAILY 10/15/21 10/16/21 History cephalexin 500 mg capsule 500 mg PO QID 10 Days #40 cap 10/15/21 10/16/21 Rx Allergies Allergy/AdvReac Type Severity Reaction Status Date / Time No Known Drug Allergies Allergy Verified 10/16/21 08:10 Review of Systems Review of Systems Narrative: NEGATIVE UNLESS NOTED ABOVE IN HPI Exam Vital Signs (past 8 hours): - 10/16/21 08:11 10/16/21 09:30 10/16/21 10:29 Temperature 98.4 F Pulse Rate 83 83 83 Respiratory Rate 18 18 Blood Pressure 137/83 141/66 H Pulse Oximetry 99 98 98 10/16/21 10:30 10/16/21 10:42 10/16/21 11:00 Temperature Pulse Rate 82 83 81 Respiratory Rate Blood Pressure 137/67 142/66 H Pulse Oximetry 98 98 98 10/16/21 11:30 10/16/21 12:00 10/16/21 12:30 Temperature Pulse Rate 80 74 86 Respiratory Rate Blood Pressure 143/65 H 128/60 145/69 H Pulse Oximetry 96 95 95 10/16/21 13:00 10/16/21 13:30 10/16/21 13:31 Temperature Pulse Rate 90 86 95 H Respiratory Rate Blood Pressure 148/82 H 192/90 H Pulse Oximetry 95 97 97 10/16/21 14:00 Temperature Pulse Rate 88 Respiratory Rate Blood Pressure 130/63 Pulse Oximetry 97 Oxygen Delivery Method Room Air Narrative Exam Narrative: NO ACUTE DISTRESS. PATIENT IS ALERT ORIENTED X3. HEAD ATRAUMATIC NORMOCEPHALIC NECK : SUPPLE WITHOUT ADENOPATHY NO CAROTID BRUITS EYE: EOMI, PERRLA, NORMAL CONJUNCTIVA; NO JAUNDICE CHEST: REGULAR RATE. NO RUBS. PMI IS NON DISPLACED. NO MURMURS; NORMAL S1- S2 PULMONARY: DECREASED BS OVER THE BASES. MILD BIBASILAR CRACKLES NOTED; NO INCREASED DULLNESS TO PERCUSSION ABDOMEN: SOFT. NONTENDER. NONDISTENDED. BOWEL SOUNDS ARE PRESENT IN ALL 4 QUADRANTS. NO MASS. EXTREMITIES: EDEMA NOTED ON THE RIGHT LOWER EXTREMITY. 2 BLISTERS LIKE LESION NOTED ON THE DORSUM OF THE FOOT IN PROXIMITY TO THE 2ND TOE ON THE RIGHT. DIABETIC CALLUS ON THE PLANTAR OF THE FOOT AGAIN AT THE LEVEL OF THE 2ND TOE. WARM TO TOUCH. REDNESS/APPRECIATED. NO OPEN WOUND/LESION APPRECIATED. NEURO: CRANIAL NERVES 2-12 GROSSLY INTACT. NO FOCAL NEUROLOGICAL DEFICIT NOTED. MSK: NORMAL RANGE OF MOTION FOR AGE. NO JOINT EFFUSION. SKIN: NO ECCHYMOSIS. NO LESION. GOOD TURGOR.; NO RASHES : NORMAL EXTERNAL GENITALIA. PSYCH : APPROPRIATE MOOD AND AFFECT. ALERT AWAKE ORIENTED X3 Objective Labs Result Diagrams: 10/16/21 09:30 10/16/21 09:30 Labs: Laboratory Results - last 24 hr 10/16/21 10/16/21 10/16/21 09:30 09:30 09:30 WBC 21.3 H RBC 4.07 L Hgb 12.6 L Hct 37.4 L MCV 91.8 MCH 30.9 MCHC 33.6 RDW 13.4 Plt Count 227 Neut % (Auto) 83.2 H Lymph % (Auto) 7.1 L [place] % (Auto) 9.1 Eos % (Auto) 0.5 L Baso % (Auto) 0.1 Neut # (Auto) 87508 H Lymph # (Auto) 1500 [place] # (Auto) 1900 H Eos # (Auto) 100 Baso # (Auto) 0 Sodium 135 L Potassium 3.6 Chloride 100 Carbon Dioxide 30 BUN 27 H Creatinine 1.01 Estimated GFR > 60 BUN/Creatinine Ratio 26.7 H Glucose 137 H Lactate 1.7 Calcium 8.2 L Total Bilirubin 1.2 AST 18 ALT 14 Alkaline Phosphatase 58 Total Protein 6.5 Albumin 3.5 Globulin 3.0 Albumin/Globulin Ratio 1.2 Procalcitonin 1.18 H SARS-CoV-2 (PCR) 10/16/21 10:39 WBC RBC Hgb Hct MCV MCH MCHC RDW Plt Count Neut % (Auto) Lymph % (Auto) [place] % (Auto) Eos % (Auto) Baso % (Auto) Neut # (Auto) Lymph # (Auto) [place] # (Auto) Eos # (Auto) Baso # (Auto) Sodium Potassium Chloride Carbon Dioxide BUN Creatinine Estimated GFR BUN/Creatinine Ratio Glucose Lactate Calcium Total Bilirubin AST ALT Alkaline Phosphatase Total Protein Albumin Globulin Albumin/Globulin Ratio Procalcitonin SARS-CoV-2 (PCR) Negative Assessment & Plan Assessment & Plan narrative: IMPRESSION CELLULITIS TO RIGHT LOWER EXTREMITY/FOOT. PRESENT ON ARRIVAL. LEUKOCYTOSIS. LIKELY ASSOCIATED WITH ABOVE REACTIVE HYPERGLYCEMIA GOUT PER HISTORY HYPERTENSION PER HISTORY ANEMIA. LIKELY CHRONIC DISEASE. PLAN PATIENT REPORTED SWIMMING IN STANDING WATER ON VACATION. WORRY IS FOR POSSIBLE INFECTION WITH VIBRIO VERSUS STAPH VERSUS STREP VERSUS GRAM-NEGATIVE BACTERIA SUCH PSEUDOMONAS. PATIENT WILL BE STARTED ON [facility] WAS GIVEN VANCOMYCIN IN THE ER WILL SWITCH TO DOXYCYCLINE TO COVER FOR VIBRIO WILL ALSO START ON CLINDAMYCIN TO COVER FOR STREPTOCOCCUS TOXIN CEFEPIME WILL COVER MOST G NEGATIVES WELL PSEUDOMONAS FOR NOW. WILL ALSO CONSIDER ANTIFUNGAL THERAPY WITH DIFLUCAN IF INDICATED CLINICALLY CULTURE WERE TAKEN IN THE ER REPORTEDLY. ONE OF THE BLISTERS WAS HAVING SOME DRAINAGE REPORTEDLY. DISEASE NOT EVIDENT DURING MY EXAM. INITIAL CULTURE RESULTS SHOWING G POSITIVE RODS I EVER THIS IS LIKELY CONTAMINATION MIGHT NEED I AND D WITH ORTHOPEDIC SURGERY FOR AN ACCURATE CULTURE SAMPLE. ON THE MEANWHILE, WILL GET A CT SCAN THE LOWER EXTREMITY WITH RULE OUT ANY DEVELOPING ABSCESS. WILL CONSIDER MRI WELL IF INDICATED CLINICALLY DAILY CBC TO FOLLOW AVOID WEIGHT-BEARING AT THIS TIME UNTIL FURTHER WORKUP IS COMPLETED. MONITOR BLOOD SUGAR CLOSELY NO HISTORY OF DIABETES HOWEVER. SPOKE TO PATIENT WITH HIS AT BEDSIDE. QUESTIONS AND CONCERNS ADDRESSED TO EVERYBODY IN THE ROOM SATISFACTION AND UNDERSTANDING ADDITIONAL MANAGEMENT PER CLINICAL COURSE DOS: 4-7 DAYS Time Spent With Patient Critical Care time: I spent a total of [] minutes of critical care time on this patient's care today; this time is exclusive of procedural time.
[2021-10-16] MEDS: CEFEPIME 1 GM in SODIUM CHLORIDE 0.9% 100 ML IV (15:56)
[2021-10-16] MEDS: LACTOBACILLUS ACIDOPHILUS TABLET 1 EACH PO (17:08)
[2021-10-16] MEDS: DOXYCYCLINE 100 MG in SODIUM CHLORIDE 0.9% 100 ML IV (17:08)
[2021-10-16] MEDS: CLINDAMYCIN 150 MG CAPSULE 300 MG PO ×2 (17:08→21:56)
[2021-10-16] MEDS: FAMOTIDINE 20 MG TABLET 40 MG PO (21:56)
[2021-10-16] MEDS: ACETAMINOPHEN 325 MG TABLET 650 MG PO (21:58)
[2021-10-17] VITALS (14 sets, daily range): BP systolic 99–160; BP diastolic 61–77; PULSE 68–91; RESP 16–18; TEMP 36.3–37.7; O2SAT 92–98
[2021-10-17] MEDS: CEFEPIME 1 GM in SODIUM CHLORIDE 0.9% 100 ML IV ×2 (04:20→15:20)
[2021-10-17] MEDS: DOXYCYCLINE 100 MG in SODIUM CHLORIDE 0.9% 100 ML IV (05:06)
[2021-10-17 06:10] LABS: Add Manual Diff / Slide Review NO; Basophils Absolute Auto 0 /uL (0-100); Basophils Percent Auto 0.1 % (0-2); Eosinophils Absolute Auto 200 /uL (0-450); Hematocrit 34.9 % (41-53); Hemoglobin 11.9 g/dL (13.5-17.5); Lymphocytes Absolute Auto 2100 /uL (1100-4500); Lymphocytes Percent Auto 11.5 % (25-40); Mean Corpuscular HGB Conc 34.1 % (30-36); Mean Corpuscular Hemoglobin 31.1 PG (26-34); Mean Corpuscular Volume 91.4 fL (80-100); Monocytes Absolute Auto 2300 /uL (0-900); Monocytes Percent Auto 12.2 % (3-14); Neutrophils Absolute Auto 14000 /uL (1500-7000); Neutrophils Percent Auto 75.2 % (50-75); Platelet Count 244 X10^3/uL (150-400); Red Blood Cell Count 3.82 X10^6/uL (4.5-5.9); Red Cell Distribution Width 12.9 % (11.6-14.8); White Blood Cell Count 18.6 X10^3/uL (4.5-11.0)
[2021-10-17 06:32] LABS: Alanine Aminotransferase 12 IU/L (<50); Albumin 3.1 g/dL (3.5-5.0); Albumin Globulin Ratio 1.1 (1.0-2.8); Alkaline Phosphatase 58 U/L (38-126); Aspartate Aminotransferase 19 IU/L (17-59); BUN Creatinine Ratio 23.5 (6-22); Bilirubin Total 0.8 mg/dL (0.2-1.3); Blood Urea Nitrogen 24 mg/dL (9-20); Calcium 7.8 mg/dL (8.4-10.2); Carbon Dioxide 24 mmol/L (22-32); Chloride 103 mmol/L (98-107); Estimated Glomerular Filt Rate > 60 mL/min (>60); Globulin 2.9 g/dL (1.7-4.1); Glucose 103 mg/dL (80-110); HEMOLYSIS < 15 (0-50); Magnesium 2.3 mg/dL (1.6-2.3); Phosphorous 2.7 mg/dL (2.3-3.7); Potassium 3.4 mmol/L (3.4-5.1); Sodium 134 mmol/L (137-145)
[2021-10-17] MEDS: CLINDAMYCIN 150 MG CAPSULE 300 MG PO ×3 (06:37→22:39)
[2021-10-17] MEDS: ACETAMINOPHEN 325 MG TABLET 650 MG PO ×2 (06:37→20:05)
[2021-10-17] MEDS: LACTOBACILLUS ACIDOPHILUS TABLET 1 EACH PO ×3 (08:45→17:17)
[2021-10-17] MEDS: allopurinoL 100 MG TABLET PO (08:45)
[2021-10-17] MEDS: ENOXAPARIN 40 MG/0.4 ML SYRINGE SUBCUT (08:45)
[2021-10-17] MEDS: AMLODIPINE 5 MG TABLET 10 MG PO (08:45)
--- NOTE | 2021-10-17 09:29 | PM.CN ---
History of Present Illness Consult details Date Patient Seen: 10/17/21 Time Patient Seen: 09:29 Chief complaint: infected rt foot Reason for consult: Right foot infection Requesting provider: Chris Connor Narrative: The patient is an 86 year old gentleman who was travelling in [place] approximately 3 weeks ago. During that trip he developed a corn under his 2nd metatarsal head. He returned home and approximately 4 days ago began to develop Redness and swelling of 2nd toe dorsally. He eventually developed a blister. He was seen by Cyndi DENISE on October 15, 2021 and started on cephalexin. His foot worsened and he was seen yesterday in the emergency department and admitted for antibiotic treatment. A CT scan was obtained. Orthopedic consultation is obtained today to rule out need for surgical management. The patient specifically denies diabetes. Meds Home Medications and Allergies Home Medications Medication Instructions Recorded Confirmed Type allopurinol 100 mg tablet 100 mg PO DAILY 10/15/21 10/16/21 History amlodipine 10 mg tablet 10 mg PO DAILY 10/15/21 10/16/21 History cephalexin 500 mg capsule 500 mg PO QID 10 Days #40 cap 10/15/21 10/16/21 Rx Allergies Allergy/AdvReac Type Severity Reaction Status Date / Time No Known Drug Allergies Allergy Verified 10/16/21 08:10 Review of Systems Review of Systems Narrative: Patient denies fevers and chills. He denies diabetes. He denies peripheral vascular disease. Exam Vital Signs (past 8 hours): - 10/17/21 02:14 10/17/21 04:00 10/17/21 05:49 Temperature 97.5 F L 97.7 F Pulse Rate 68 77 Respiratory Rate 17 17 Blood Pressure 116/64 129/70 Pulse Oximetry 93 94 92 10/17/21 07:00 Temperature 97.8 F Pulse Rate 80 Respiratory Rate 17 Blood Pressure 125/67 Pulse Oximetry 93 Oxygen Delivery Method Room Air Oxygen Flow Rate 0 Narrative Exam Narrative: On physical examination of the right lower extremity the midportion of the 2nd toe is somewhat dusky. There is a blister at the base of the 2nd toe extending about a cm and half proximally. This area is surrounded by erythema which has been outlined with a sharpie marker. There is an additional area of mild erythema overlying the Achilles tendon posteriorly however this does not appear to be infectious in nature. It may be pressure related from being in bed. On the bases of 2nd toe on the plantar aspect there is a dry corn with no drainage and no ulceration. Light touch is reduced in the tip of the 2nd toe. He has no significant pain on motion of the toe. Objective Imaging CT scan of her right foot: My impression: There is no evidence of abscess or gaseous infiltration of the tissues. There is global soft tissue swelling consistent with cellulitis. There appears to be no bony involvement. Radiologist's impression: IMPRESSION: 1. Extensive cellulitis in right ankle and foot as described above. No discrete drainable abscess collection is seen. 2. Right foot and ankle joint osteoarthritis. No fracture or dislocation. No evidence of osteomyelitis. Labs Result Diagrams: 10/17/21 05:30 10/17/21 05:30 Labs: Laboratory Results - last 24 hr 10/16/21 10/16/21 10/16/21 09:30 09:30 09:30 WBC 21.3 H RBC 4.07 L Hgb 12.6 L Hct 37.4 L MCV 91.8 MCH 30.9 MCHC 33.6 RDW 13.4 Plt Count 227 Neut % (Auto) 83.2 H Lymph % (Auto) 7.1 L [place] % (Auto) 9.1 Eos % (Auto) 0.5 L Baso % (Auto) 0.1 Neut # (Auto) 41128 H Lymph # (Auto) 1500 [place] # (Auto) 1900 H Eos # (Auto) 100 Baso # (Auto) 0 Sodium 135 L Potassium 3.6 Chloride 100 Carbon Dioxide 30 BUN 27 H Creatinine 1.01 Estimated GFR > 60 BUN/Creatinine Ratio 26.7 H Glucose 137 H Lactate 1.7 Calcium 8.2 L Phosphorus Magnesium Total Bilirubin 1.2 AST 18 ALT 14 Alkaline Phosphatase 58 Total Protein 6.5 Albumin 3.5 Globulin 3.0 Albumin/Globulin Ratio 1.2 Procalcitonin 1.18 H SARS-CoV-2 (PCR) 10/16/21 10/17/21 10/17/21 10:39 05:30 05:30 WBC 18.6 H RBC 3.82 L Hgb 11.9 L Hct 34.9 L MCV 91.4 MCH 31.1 MCHC 34.1 RDW 12.9 Plt Count 244 Neut % (Auto) 75.2 H Lymph % (Auto) 11.5 L [place] % (Auto) 12.2 Eos % (Auto) 1.0 L Baso % (Auto) 0.1 Neut # (Auto) 83365 H Lymph # (Auto) 2100 [place] # (Auto) 2300 H Eos # (Auto) 200 Baso # (Auto) 0 Sodium 134 L Potassium 3.4 Chloride 103 Carbon Dioxide 24 BUN 24 H Creatinine 1.02 Estimated GFR > 60 BUN/Creatinine Ratio 23.5 H Glucose 103 Lactate Calcium 7.8 L Phosphorus 2.7 Magnesium 2.3 Total Bilirubin 0.8 AST 19 ALT 12 Alkaline Phosphatase 58 Total Protein 6.0 L Albumin 3.1 L Globulin 2.9 Albumin/Globulin Ratio 1.1 Procalcitonin SARS-CoV-2 (PCR) Negative [facility] Medical History Gout Hypertension Social History household members: spouse Tobacco & Substance Use Smoking Status: Never smoker Assessment & Plan Assessment & Plan narrative: The patient has a cellulitis of the dorsum of the right foot with an overlying blister. I do not see a discrete drainable fluid collection other than the blister on examination. This is confirmed by his CT. I have talked him about continuing the antibiotics intravenously. I will unroof the blister and send the fluid for culture. I will continue to follow him while he was hospitalized but at the current time there does not appear to be in need for surgical debridement be on the blister being on roofed. After obtaining verbal consent from the patient, the area around the blister was prepared with ChloraPrep and the necrotic skin on the dorsum of the blister was removed. The underlying fluid was cultured with culture swabs and sent to the laboratory. The blister base was lightly debrided with a 4 x 4 to clean fibrinous exudate. A dressing of Xeroform, sterile 4x4s and a Natasha wrap was applied. The patient tolerated the procedure well. Time Spent With Patient Time with patient: 30 to 49 minutes with 50% spent counseling/coordinating care Critical Care time: I spent a total of [] minutes of critical care time on this patient's care today; this time is exclusive of procedural time.
[2021-10-17] MEDS: VANCOMYCIN 1,000 MG/200 ML PIGGYBACK 200 MG IV ×2 (12:40→22:40)
--- NOTE | 2021-10-17 16:21 | CM.DANOTE ---
Initial DCP Assessment Note Pt is a 86 yo male, resident of [place], arrives w/rt foot infection- which developed after a recent trip to [place] where he had been on his feet extensively and developed corn and blistering ; no need for I+D at this time according to Dr Dalton, culture taken of wound and sent, patient currently on IV abx treatment PCP: Jimmy Cantu Payer: ANN/Juliane Reviewed chart, met w/patient to introduce role. Patient very pleasant, states he is active and indp at baseline, no children, states he has friends he could call upon to assist as needed. Patient expects to return home upon DC, with spouse and denies needs at this time from CM team Discussed potential need for ongoing IV abx therapy depending on culture results and improvement seen of current infection, patient states he would be hopeful to come into [facility] or have home infusion if need for ongoing IV abx is required CM team will plan to follow closely in the case that DC needs, questions, or concerns arise [facility] [place] Discharge Planning/Care Management Discharge Assessment Start: 10/17/21 16:19 Freq: Status: Active Protocol: Document 10/17/21 16:20 DANIEL (Rec: 10/17/21 16:21 [id number]) Discharge Planning Assessment Assigned [employer] Equipment Operator [facility] DPOA/Assigned Designee Name Marleny Fonutain, spouse Contact Information [phone] Advance Directives? Yes Advance Directives on File No History Provided By Patient Prior Living Arrangements House Household Members spouse Type of transporation used prior to Drives own vehicle admit Independent with ADL's Yes Is patient alert and oriented? Yes Patient/Family Preference Home with Home Health Barriers to Discharge No Comment Patient expects to return home upon DC, r/o need for ongoing IV abx Discharge Plan Home Transportation Arrangement Spouse Referrals Initiated None needed Additional Comment Awaiting medical POC to unfold - cultures pending
--- NOTE | 2021-10-17 16:52 | PM.PN.1 ---
Subjective Subjective Date Patient Seen: 10/17/21 Interval history: BRIEF HPI THIS IS A VERY PLEASANT 86-YEAR-OLD MALE ADMITTED WITH A BLISTERING CELLULITIC LESION TO THE RIGHT LOWER EXTREMITY. ORTHOPEDIC SURGERY CONSULTED ON 10/17. CULTURES PENDING TODAY REPORTED INCREASING REDNESS WELL INCREASING BLISTER SIZE DENIES FEVER. DENIES CHILLS. DENIES ANY NUMBNESS TO LOWER EXTREMITIES. AGAIN DENIES HISTORY OF PVD/PAD, DIABETES NO OTHER SIGNIFICANT ISSUES OVERNIGHT Exam Vital Signs (past 8 hours): - 10/17/21 10:55 10/17/21 12:32 10/17/21 15:00 Temperature 97.4 F L 98.2 F Pulse Rate 73 80 Respiratory Rate 18 17 Blood Pressure 99/61 121/67 Pulse Oximetry 94 96 96 10/17/21 16:00 Temperature Pulse Rate Respiratory Rate Blood Pressure Pulse Oximetry 98 Oxygen Delivery Method Room Air Oxygen Flow Rate 0 Narrative Exam Narrative: NO ACUTE DISTRESS.? PATIENT IS ALERT ORIENTED X3. HEAD ATRAUMATIC NORMOCEPHALIC NECK : SUPPLE WITHOUT ADENOPATHY NO CAROTID BRUITS EYE:? EOMI, PERRLA, NORMAL CONJUNCTIVA; NO JAUNDICE CHEST:? REGULAR RATE.? ? NO RUBS.? PMI IS NON DISPLACED.? NO MURMURS; NORMAL S1-S2 PULMONARY:? DECREASED BS OVER THE BASES.? MILD BIBASILAR CRACKLES NOTED; NO INCREASED DULLNESS TO PERCUSSION ABDOMEN: ? SOFT.? NONTENDER.? NONDISTENDED.? BOWEL SOUNDS ARE PRESENT IN ALL 4 QUADRANTS.? NO MASS. EXTREMITIES:? EDEMA NOTED ON THE RIGHT LOWER EXTREMITY.? REDNESS NOTED ON THE DORSUM OF THE FOOT IN PROXIMITY TO THE 2ND TOE ON THE RIGHT WITH EXTENSION TO THE HIND FOOT AND THE LEG POSTERIORLY..? HARD CALLUS ON THE PLANTAR OF THE FOOT AGAIN AT THE LEVEL OF THE 2ND TOE.? .? REDNESS/APPRECIATED.? OPEN DRAINING BLISTERS APPRECIATED. NEURO:? CRANIAL NERVES 2-12 GROSSLY INTACT. NO FOCAL NEUROLOGICAL DEFICIT NOTED. MSK:? NORMAL RANGE OF MOTION FOR AGE.? NO JOINT EFFUSION. SKIN: NO ECCHYMOSIS.? NO LESION. ? GOOD? TURGOR.; NO RASHES :? NORMAL EXTERNAL GENITALIA. PSYCH :? APPROPRIATE MOOD AND AFFECT.? ALERT AWAKE ORIENTED X3 Objective Labs Result Diagrams: 10/17/21 05:30 10/17/21 05:30 Labs: Laboratory Results - last 24 hr 10/17/21 10/17/21 05:30 05:30 WBC 18.6 H RBC 3.82 L Hgb 11.9 L Hct 34.9 L MCV 91.4 MCH 31.1 MCHC 34.1 RDW 12.9 Plt Count 244 Neut % (Auto) 75.2 H Lymph % (Auto) 11.5 L [place] % (Auto) 12.2 Eos % (Auto) 1.0 L Baso % (Auto) 0.1 Neut # (Auto) 20990 H Lymph # (Auto) 2100 [place] # (Auto) 2300 H Eos # (Auto) 200 Baso # (Auto) 0 Sodium 134 L Potassium 3.4 Chloride 103 Carbon Dioxide 24 BUN 24 H Creatinine 1.02 Estimated GFR > 60 BUN/Creatinine Ratio 23.5 H Glucose 103 Calcium 7.8 L Phosphorus 2.7 Magnesium 2.3 Total Bilirubin 0.8 AST 19 ALT 12 Alkaline Phosphatase 58 Total Protein 6.0 L Albumin 3.1 L Globulin 2.9 Albumin/Globulin Ratio 1.1 PFSH Medical History Gout Hypertension Social History household members: spouse Smoking Status: Never smoker Assessment & Plan Assessment & Plan narrative: IMPRESSION CELLULITIS TO RIGHT LOWER EXTREMITY/FOOT.? PRESENT ON ARRIVAL. ORTHOPEDIC SURGERY CONSULTED LEUKOCYTOSIS.? LIKELY ASSOCIATED WITH ABOVE. IMPROVED REACTIVE HYPERGLYCEMIA. MONITOR ONLY FOR NOW GOUT PER HISTORY. CONTINUE HOME MEDS HYPERTENSION PER HISTORY ANEMIA.? LIKELY CHRONIC DISEASE. PLAN PATIENT IS STATUS POST LANCING OF THE BLISTER BY ORTHOPEDIC SURGERY CULTURES HAS BEEN COLLECTED AND SENT TO THE LAB CONTINUE ANTIBIOTICS FOR NOW PATIENT IS ON VANCOMYCIN WHICH WAS ADDED TODAY ONCE AGAIN CONTINUE P.O. CLINDA AND DOXY CONSIDER ADDING ANTIFUNGAL AGENT WELL IF INDICATED CLINICALLY. SHE IS ON CEFEPIME WELL. MONITOR CLOSELY FOR ANY SIGN OF COLITIS WHICH COULD BE A COMPLICATION FROM ANTIBIOTIC THERAPY. DAILY CBC TO FOLLOW AVOID PUTTING PRESSURE TO THE FOREFOOT ON THE RIGHT. HOWEVER ENCOURAGE PATIENT TO STAY MOBILE POSSIBLE PATIENT TO BE OUT OF BED AND IN CHAIR WITH EACH MEAL NURSING TO ENCOURAGE PATIENT TO USE THAT INCENTIVE SPIROMETRY DEVICE ORDERED ADDITIONAL MANAGEMENT PER CLINICAL COURSE POSSIBLE DISCHARGE IN NEXT 3-5 DAYS CLINICALLY STABLE 10/16 PATIENT REPORTED SWIMMING IN STANDING WATER ON VACATION. WORRY IS FOR POSSIBLE INFECTION WITH VIBRIO VERSUS STAPH VERSUS STREP VERSUS GRAM-NEGATIVE BACTERIA SUCH PSEUDOMONAS. PATIENT WILL BE STARTED ON BROAD-[employer] ANTIBIOTICS WAS GIVEN VANCOMYCIN IN THE ER WILL SWITCH TO DOXYCYCLINE TO COVER FOR VIBRIO WILL ALSO START ON CLINDAMYCIN TO COVER FOR STREPTOCOCCUS TOXIN CEFEPIME WILL COVER MOST G NEGATIVES WELL PSEUDOMONAS FOR NOW. WILL ALSO CONSIDER ANTIFUNGAL THERAPY WITH DIFLUCAN IF INDICATED CLINICALLY CULTURE WERE TAKEN IN THE ER REPORTEDLY. ONE OF THE BLISTERS WAS HAVING SOME DRAINAGE REPORTEDLY.? DISEASE NOT EVIDENT DURING MY EXAM. INITIAL CULTURE RESULTS SHOWING G POSITIVE RODS I EVER THIS IS LIKELY CONTAMINATION MIGHT NEED I AND D WITH ORTHOPEDIC SURGERY FOR AN ACCURATE CULTURE SAMPLE. ON THE MEANWHILE, WILL GET A CT SCAN THE LOWER EXTREMITY WITH RULE OUT ANY DEVELOPING ABSCESS. WILL CONSIDER MRI WELL IF INDICATED CLINICALLY DAILY CBC TO FOLLOW AVOID WEIGHT-BEARING AT THIS TIME UNTIL FURTHER WORKUP IS COMPLETED. MONITOR BLOOD SUGAR CLOSELY NO HISTORY OF DIABETES HOWEVER. SPOKE TO PATIENT WITH HIS AT BEDSIDE. QUESTIONS AND CONCERNS ADDRESSED TO EVERYBODY IN THE ROOM SATISFACTION AND UNDERSTANDING ADDITIONAL MANAGEMENT PER CLINICAL COURSE Time Spent With Patient Critical Care time: I spent a total of [] minutes of critical care time on this patient's care today; this time is exclusive of procedural time. Quality VTE Deep Vein Thrombosis/Pulmonary Embolism Present on Admission: No
[2021-10-17] MEDS: SENNOSIDES 8.6 MG TABLET 17.2 MG PO (20:05)
[2021-10-17] MEDS: DOXYCYCLINE HYCLATE 100 MG TABLET PO (20:06)
[2021-10-17] MEDS: FAMOTIDINE 20 MG TABLET 40 MG PO (20:06)
[2021-10-18] VITALS (15 sets, daily range): BP systolic 127–149; BP diastolic 62–77; PULSE 74–87; RESP 14–18; TEMP 36.7–38.1; O2SAT 93–98
[2021-10-18] MEDS: CEFEPIME 1 GM in SODIUM CHLORIDE 0.9% 100 ML IV ×2 (03:35→14:23)
[2021-10-18 05:36] LABS: Add Manual Diff / Slide Review NO; Basophils Absolute Auto 0 /uL (0-100); Basophils Percent Auto 0.2 % (0-2); Eosinophils Absolute Auto 200 /uL (0-450); Hematocrit 35.7 % (41-53); Hemoglobin 12.1 g/dL (13.5-17.5); Lymphocytes Absolute Auto 1700 /uL (1100-4500); Lymphocytes Percent Auto 10.1 % (25-40); Mean Corpuscular HGB Conc 33.9 % (30-36); Mean Corpuscular Volume 91.4 fL (80-100); Monocytes Absolute Auto 2300 /uL (0-900); Monocytes Percent Auto 13.5 % (3-14); Neutrophils Absolute Auto 12900 /uL (1500-7000); Neutrophils Percent Auto 75.2 % (50-75); Platelet Count 276 X10^3/uL (150-400); Red Blood Cell Count 3.91 X10^6/uL (4.5-5.9); Red Cell Distribution Width 13.3 % (11.6-14.8); White Blood Cell Count 17.1 X10^3/uL (4.5-11.0)
[2021-10-18 05:47] LABS: Alanine Aminotransferase 14 IU/L (<50); Albumin 3.3 g/dL (3.5-5.0); Albumin Globulin Ratio 1.1 (1.0-2.8); Alkaline Phosphatase 63 U/L (38-126); Aspartate Aminotransferase 21 IU/L (17-59); BUN Creatinine Ratio 27.3 (6-22); Bilirubin Total 0.7 mg/dL (0.2-1.3); Blood Urea Nitrogen 24 mg/dL (9-20); Carbon Dioxide 22 mmol/L (22-32); Chloride 104 mmol/L (98-107); Estimated Glomerular Filt Rate > 60 mL/min (>60); Globulin 2.9 g/dL (1.7-4.1); Glucose 105 mg/dL (80-110); HEMOLYSIS < 15 (0-50); Magnesium 2.1 mg/dL (1.6-2.3); Phosphorous 3.1 mg/dL (2.3-3.7); Potassium 3.3 mmol/L (3.4-5.1); Sodium 137 mmol/L (137-145); Total Protein 6.2 g/dL (6.3-8.2)
[2021-10-18] MEDS: CLINDAMYCIN 150 MG CAPSULE 300 MG PO ×3 (06:03→21:03)
--- NOTE | 2021-10-18 08:59 | P.PN_ITS ---
Subjective Subjective Date Patient Seen: 10/18/21 Time Patient Seen: 08:59 Interval history: The patient reports he is feeling somewhat better than he was yesterday. He does note he had an episode of fever overnight. Exam Vital Signs (past 8 hours): - 10/18/21 01:00 10/18/21 03:55 10/18/21 05:00 Temperature 98.1 F Pulse Rate 78 Respiratory Rate 17 Blood Pressure 129/63 Pulse Oximetry 97 93 94 10/18/21 07:00 Temperature 98.9 F Pulse Rate 81 Respiratory Rate 16 Blood Pressure 127/68 Pulse Oximetry 96 Oxygen Delivery Method Room Air Oxygen Flow Rate 0 Narrative Exam Narrative: Right foot is re-examined. The area of the blister base which was unroof yesterday remains covered with the Xeroform. The surrounding erythema is somewhat less significant and he is beginning to have a decrease in swelling of the dorsum of the foot. There is still significant erythema on the dorsum of the foot. Light touch remains slightly reduced in the distal 2nd toe. The corn underlying the 2nd metatarsal head remains dry without drainage or erythema. Objective Labs Result Diagrams: 10/18/21 04:50 10/18/21 04:50 Labs: Laboratory Results - last 24 hr 10/18/21 10/18/21 04:50 04:50 WBC 17.1 H RBC 3.91 L Hgb 12.1 L Hct 35.7 L MCV 91.4 MCH 31.0 MCHC 33.9 RDW 13.3 Plt Count 276 Neut % (Auto) 75.2 H Lymph % (Auto) 10.1 L [place] % (Auto) 13.5 Eos % (Auto) 1.0 L Baso % (Auto) 0.2 Neut # (Auto) 63289 H Lymph # (Auto) 1700 [place] # (Auto) 2300 H Eos # (Auto) 200 Baso # (Auto) 0 Sodium 137 Potassium 3.3 L Chloride 104 Carbon Dioxide 22 BUN 24 H Creatinine 0.88 Estimated GFR > 60 BUN/Creatinine Ratio 27.3 H Glucose 105 Calcium 8.0 L Phosphorus 3.1 Magnesium 2.1 Total Bilirubin 0.7 AST 21 ALT 14 Alkaline Phosphatase 63 Total Protein 6.2 L Albumin 3.3 L Globulin 2.9 Albumin/Globulin Ratio 1.1 [facility] Medical History Gout Hypertension Social History household members: spouse Smoking Status: Never smoker Assessment & Plan Assessment & Plan narrative: The patient has a right foot cellulitis. There is no evidence on examination or CT scan to show abscess or osteomyelitis. His white count is slowly dropping while he has been on IV antibiotics. Cultures are currently pending. He does not appear to need surgery currently. IV antibiotics should be continued. Eventually if he continues to have a drop in white count and clinical improvement he can be discharged either on ongoing IV antibiotics or oral antibiotics depending on culture results. The foot was redressed after examina tion this morning. Time Spent With Patient Time with patient: less than 30 minutes Critical Care time: I spent a total of [] minutes of critical care time on this patient's care today; this time is exclusive of procedural time. Quality VTE Deep Vein Thrombosis/Pulmonary Embolism Present on Admission: No
[2021-10-18] MEDS: ENOXAPARIN 40 MG/0.4 ML SYRINGE SUBCUT (10:42)
[2021-10-18] MEDS: DOXYCYCLINE HYCLATE 100 MG TABLET PO ×2 (10:43→20:44)
[2021-10-18] MEDS: LACTOBACILLUS ACIDOPHILUS TABLET 1 EACH PO ×3 (10:43→16:05)
[2021-10-18] MEDS: POTASSIUM CHLORIDE 20 MEQ TAB 40 MEQ PO ×2 (10:43→16:05)
[2021-10-18] MEDS: AMLODIPINE 5 MG TABLET 10 MG PO (10:43)
[2021-10-18] MEDS: allopurinoL 100 MG TABLET PO (10:43)
[2021-10-18] MEDS: VANCOMYCIN 1,000 MG/200 ML PIGGYBACK 200 MG IV ×2 (10:47→21:04)
--- NOTE | 2021-10-18 13:32 | CM.DPC ---
DCP: Home with IV or oral antibiotics pending cultures Pt is an independent 86 y/o M who just recently returned from a vacation in [place]. Pt admitted with R foot infection. Per MD, there is currently no evidence to show abscess or osteomyelitis and his WBC is slowly dropping. Pt is currently on IV antibiotics with cultures still pending. No need for surgery at this time. If patient continues to have a decline in WBC and is clinically improving, he would be able to go home on IV abx or oral abx depending on culture result. P: DCP to continue to follow this case. DCP to await culture results and MD recommendations for IV abx or oral abx. Pt to then d/c home via POV. Betzaida Jasso RN/SCOTTP
[2021-10-18] MEDS: ACETAMINOPHEN 325 MG TABLET 650 MG PO (15:18)
--- NOTE | 2021-10-18 15:25 | PM.PN.1 ---
Subjective Subjective Date Patient Seen: 10/18/21 Interval history: BRIEF HPI ?THIS IS A VERY PLEASANT 86-YEAR-OLD MALE ADMITTED WITH A ? BLISTERING CELLULITIC LESION TO THE RIGHT LOWER EXTREMITY. ?ORTHOPEDIC SURGERY CONSULTED ON 10/17.? ? CULTURES PENDING ?TODAY REPORTED FEELING SLIGHTLY FEVERISH OVERNIGHT DENIES ANY CHILLS NO INCREASING PAIN TO THE LOWER EXTREMITIES NO CHEST PAIN. NO CHEST PALPITATIONS. NO INCREASING SHORTNESS OF BREATH Exam Vital Signs (past 8 hours): - 10/18/21 07:35 10/18/21 10:57 10/18/21 11:45 Temperature 98.4 F Pulse Rate 74 Respiratory Rate 17 Blood Pressure 143/62 H Pulse Oximetry 93 97 94 10/18/21 13:55 10/18/21 15:00 Temperature 100.6 F H Pulse Rate 87 Respiratory Rate 17 Blood Pressure 149/69 H Pulse Oximetry 96 96 Oxygen Delivery Method Room Air Oxygen Flow Rate 0 Narrative Exam Narrative: NO ACUTE DISTRESS.? PATIENT IS ALERT ORIENTED X3. HEAD ATRAUMATIC NORMOCEPHALIC NECK : SUPPLE WITHOUT ADENOPATHY NO CAROTID BRUITS EYE:? EOMI, PERRLA, NORMAL CONJUNCTIVA; NO JAUNDICE CHEST:? REGULAR RATE.? ? NO RUBS.? PMI IS NON DISPLACED.? NO MURMURS; NORMAL S1-S2 PULMONARY:? DECREASED BS OVER THE BASES.? MILD BIBASILAR CRACKLES NOTED; NO INCREASED DULLNESS TO PERCUSSION ABDOMEN: ? SOFT.? NONTENDER.? NONDISTENDED.? BOWEL SOUNDS ARE PRESENT IN ALL 4 QUADRANTS.? NO MASS. EXTREMITIES:? EDEMA NOTED ON THE RIGHT LOWER EXTREMITY.?? REDNESS NOTED ON THE DORSUM OF THE FOOT IN PROXIMITY TO THE 2ND TOE ON THE RIGHT WITH EXTENSION TO THE? HIND? FOOT AND THE LEG POSTERIORLY..? ? HARD CALLUS ON THE PLANTAR OF THE FOOT AGAIN AT THE LEVEL OF THE 2ND TOE.? REDNESS/APPRECIATED.? OPEN?/ DRAINING BLISTERS APPRECIATED. MODERATE AMOUNT OF SEROUS DRAINAGE NEURO:? CRANIAL NERVES 2-12 GROSSLY INTACT. NO FOCAL NEUROLOGICAL DEFICIT NOTED. MSK:? NORMAL RANGE OF MOTION FOR AGE.? NO JOINT EFFUSION. SKIN: NO ECCHYMOSIS.? ? GOOD? TURGOR. :? NORMAL EXTERNAL GENITALIA. PSYCH :? APPROPRIATE MOOD AND AFFECT.? ALERT AWAKE ORIENTED X3 Objective Labs Result Diagrams: 10/18/21 04:50 10/18/21 04:50 Labs: Laboratory Results - last 24 hr 10/18/21 10/18/21 04:50 04:50 WBC 17.1 H RBC 3.91 L Hgb 12.1 L Hct 35.7 L MCV 91.4 MCH 31.0 MCHC 33.9 RDW 13.3 Plt Count 276 Neut % (Auto) 75.2 H Lymph % (Auto) 10.1 L [place] % (Auto) 13.5 Eos % (Auto) 1.0 L Baso % (Auto) 0.2 Neut # (Auto) 65415 H Lymph # (Auto) 1700 [place] # (Auto) 2300 H Eos # (Auto) 200 Baso # (Auto) 0 Sodium 137 Potassium 3.3 L Chloride 104 Carbon Dioxide 22 BUN 24 H Creatinine 0.88 Estimated GFR > 60 BUN/Creatinine Ratio 27.3 H Glucose 105 Calcium 8.0 L Phosphorus 3.1 Magnesium 2.1 Total Bilirubin 0.7 AST 21 ALT 14 Alkaline Phosphatase 63 Total Protein 6.2 L Albumin 3.3 L Globulin 2.9 Albumin/Globulin Ratio 1.1 [facility] Medical History Gout Hypertension Social History household members: spouse Smoking Status: Never smoker Assessment & Plan Assessment & Plan narrative: IMPRESSION CELLULITIS TO RIGHT LOWER EXTREMITY/FOOT.? PRESENT ON ARRIVAL.? ORTHOPEDIC SURGERY CONSULTED LEUKOCYTOSIS.? LIKELY ASSOCIATED WITH ABOVE.? IMPROVED REACTIVE HYPERGLYCEMIA.? MONITOR ONLY FOR NOW GOUT PER HISTORY.? CONTINUE HOME MEDS HYPERTENSION PER HISTORY ANEMIA.? LIKELY CHRONIC DISEASE. PLAN ASSISTANCE FROM MULTIPLE ACCESSORY GREATLY APPRECIATED RECOMMENDATIONS NOTED AND APPRECIATED WELL CONTINUE CURRENT ANTIBIOTICS CULTURES PENDING SO FAR WBC DID DECREASE SLIGHTLY TODAY WILL CONTINUE CURRENT ANTIBIOTICS FOR NOW DAILY DRESSING CHANGE PER ORTHOPEDIC SURGERY RECOMMENDATIONS DAILY CBC TO FOLLOW AGAIN IF SIGNIFICANT CHANGES HOW OLD THE OF REGARD TO THE WBC COUNT, COULD CONSIDER ADDING DIFLUCAN TO COVER FOR YEAST ADDITIONAL MANAGEMENT PER CLINICAL COURSE 10/17 ?PATIENT IS STATUS POST LANCING OF THE BLISTER BY? ORTHOPEDIC SURGERY ?CULTURES HAS BEEN COLLECTED AND SENT TO THE LAB ?CONTINUE ANTIBIOTICS FOR NOW ?PATIENT IS ON VANCOMYCIN WHICH WAS ADDED TODAY ONCE AGAIN ?CONTINUE P.O.? CLINDA AND DOXY ?CONSIDER ADDING ANTIFUNGAL AGENT WELL IF INDICATED CLINICALLY. ? SHE IS ON CEFEPIME WELL. ? MONITOR CLOSELY FOR ANY SIGN OF COLITIS WHICH COULD BE A COMPLICATION FROM ANTIBIOTIC THERAPY. ? DAILY CBC TO FOLLOW ?AVOID PUTTING PRESSURE TO THE FOREFOOT ON THE RIGHT. ? HOWEVER ENCOURAGE PATIENT TO STAY MOBILE POSSIBLE ?PATIENT TO BE OUT OF BED AND IN CHAIR WITH EACH MEAL ?NURSING TO ENCOURAGE PATIENT TO USE THAT INCENTIVE SPIROMETRY DEVICE ORDERED ? ADDITIONAL MANAGEMENT PER CLINICAL COURSE ?POSSIBLE DISCHARGE IN NEXT 3-5 DAYS CLINICALLY STABLE 10/16 PATIENT REPORTED SWIMMING IN STANDING WATER ON VACATION. WORRY IS FOR POSSIBLE INFECTION WITH VIBRIO VERSUS STAPH VERSUS STREP VERSUS GRAM-NEGATIVE BACTERIA SUCH PSEUDOMONAS. PATIENT WILL BE STARTED ON BROAD-[employer] ANTIBIOTICS WAS GIVEN VANCOMYCIN IN THE ER WILL SWITCH TO DOXYCYCLINE TO COVER FOR VIBRIO WILL ALSO START ON CLINDAMYCIN TO COVER FOR STREPTOCOCCUS TOXIN CEFEPIME WILL COVER MOST G NEGATIVES WELL PSEUDOMONAS FOR NOW. WILL ALSO CONSIDER ANTIFUNGAL THERAPY WITH DIFLUCAN IF INDICATED CLINICALLY CULTURE WERE TAKEN IN THE ER REPORTEDLY. ONE OF THE BLISTERS WAS HAVING SOME DRAINAGE REPORTEDLY.? DISEASE NOT EVIDENT DURING MY EXAM. INITIAL CULTURE RESULTS SHOWING G POSITIVE RODS I EVER THIS IS LIKELY CONTAMINATION MIGHT NEED I AND D WITH ORTHOPEDIC SURGERY FOR AN ACCURATE CULTURE SAMPLE. ON THE MEANWHILE, WILL GET A CT SCAN THE LOWER EXTREMITY WITH RULE OUT ANY DEVELOPING ABSCESS. WILL CONSIDER MRI WELL IF INDICATED CLINICALLY DAILY CBC TO FOLLOW AVOID WEIGHT-BEARING AT THIS TIME UNTIL FURTHER WORKUP IS COMPLETED. MONITOR BLOOD SUGAR CLOSELY NO HISTORY OF DIABETES HOWEVER. SPOKE TO PATIENT WITH HIS AT BEDSIDE. QUESTIONS AND CONCERNS ADDRESSED TO EVERYBODY IN THE ROOM SATISFACTION AND UNDERSTANDING ADDITIONAL MANAGEMENT PER CLINICAL COURSE Time Spent With Patient Critical Care time: I spent a total of [] minutes of critical care time on this patient's care today; this time is exclusive of procedural time. Quality VTE Deep Vein Thrombosis/Pulmonary Embolism Present on Admission: No
[2021-10-18] MEDS: FAMOTIDINE 20 MG TABLET 40 MG PO (20:44)
[2021-10-18] MEDS: SENNOSIDES 8.6 MG TABLET 17.2 MG PO (20:45)
[2021-10-19] VITALS (12 sets, daily range): BP systolic 137–155; BP diastolic 70–81; PULSE 69–84; RESP 16–20; TEMP 36.6–37.3; O2SAT 93–98; BMI 25.1
[2021-10-19] MEDS: CEFEPIME 1 GM in SODIUM CHLORIDE 0.9% 100 ML IV ×2 (03:04→15:36)
[2021-10-19 05:03] LABS: Add Manual Diff / Slide Review NO; Basophils Absolute Auto 0 /uL (0-100); Basophils Percent Auto 0.2 % (0-2); Eosinophils Absolute Auto 300 /uL (0-450); Eosinophils Percent Auto 1.6 % (2-4); Hematocrit 36.6 % (41-53); Hemoglobin 12.5 g/dL (13.5-17.5); Lymphocytes Absolute Auto 2100 /uL (1100-4500); Lymphocytes Percent Auto 12.7 % (25-40); Mean Corpuscular Hemoglobin 30.8 PG (26-34); Mean Corpuscular Volume 90.4 fL (80-100); Monocytes Absolute Auto 2400 /uL (0-900); Monocytes Percent Auto 14.7 % (3-14); Neutrophils Absolute Auto 11600 /uL (1500-7000); Neutrophils Percent Auto 70.8 % (50-75); Platelet Count 284 X10^3/uL (150-400); Red Blood Cell Count 4.05 X10^6/uL (4.5-5.9); Red Cell Distribution Width 13.2 % (11.6-14.8); White Blood Cell Count 16.5 X10^3/uL (4.5-11.0)
[2021-10-19 05:17] LABS: Alanine Aminotransferase 19 IU/L (<50); Albumin 3.2 g/dL (3.5-5.0); Alkaline Phosphatase 62 U/L (38-126); Aspartate Aminotransferase 26 IU/L (17-59); BUN Creatinine Ratio 21.8 (6-22); Bilirubin Total 0.7 mg/dL (0.2-1.3); Blood Urea Nitrogen 19 mg/dL (9-20); Calcium 8.1 mg/dL (8.4-10.2); Carbon Dioxide 21 mmol/L (22-32); Chloride 106 mmol/L (98-107); Estimated Glomerular Filt Rate > 60 mL/min (>60); Globulin 3.2 g/dL (1.7-4.1); Glucose 117 mg/dL (80-110); HEMOLYSIS < 15 (0-50); Phosphorous 3.4 mg/dL (2.3-3.7); Potassium 3.9 mmol/L (3.4-5.1); Sodium 137 mmol/L (137-145); Total Protein 6.4 g/dL (6.3-8.2)
[2021-10-19] MEDS: CLINDAMYCIN 150 MG CAPSULE 300 MG PO ×3 (05:30→22:22)
--- NOTE | 2021-10-19 09:06 | PC.NURSE ---
Patient resting in bed, Left Foot has a 3 x 5.5 x 0.1cm wound to the dorsum of the foot where it appears that a large bulla has burst. The wound bed is slough/collagen with well-defined, attached edges and no drainage noted at this time. There is also a 2 x 2.5 x 0.1cm wound to the Left lateral malleolus which also appears to be a burst bulla, also with well-defined, attached edges. This wound does have a small amount of serous drainage noted. Patient says he has had these wounds for a few weeks. Left foot has 2+ edema, dorsalis pedis pulse faintly palpated, capillary refill < 3 seconds. These wounds are gently cleansed with saline and protective bordered foam dressing placed to each wound. It is my recommendation patient follow up at wound healing center after discharge from hospital.
--- NOTE | 2021-10-19 09:58 | P.PN_ITS ---
Subjective Subjective Date Patient Seen: 10/19/21 Time Patient Seen: 09:00 Interval history: Patient is complaining of moderate right foot pain. He denies any new numbness or tingling. He denies any recent fevers, chills, night sweats. He is on IV vanco and Cefepime, and p.o. clinda and doxy. Final culture results are still pending. Exam Vital Signs (past 8 hours): - 10/19/21 02:00 10/19/21 05:00 10/19/21 06:00 Temperature 98.0 F Pulse Rate 69 Respiratory Rate 16 Blood Pressure 146/78 H Pulse Oximetry 95 97 97 10/19/21 09:00 Temperature 98.1 F Pulse Rate 80 Respiratory Rate 16 Blood Pressure 151/80 H Pulse Oximetry 95 Oxygen Delivery Method Room Air Oxygen Flow Rate 0 Narrative Exam Narrative: Pleasant 86-year-old male, resting comfortably in bed, no acute distress. Right foot exam: Dressing changed today:? The area of the blister base demonstrates granulation tissue no ирина pus. The surrounding erythema has not decreased significantly from the demarcation lines, there is still mild to moderate swelling of the dorsum of the foot.? There is still significant erythema on the dorsum of the foot.? Light touch intact throughout.? The corn underlying the 2nd metatarsal head remains dry without drainage or erythema. Bilateral calves are soft and nontender to palpation. Objective Labs Result Diagrams: 10/19/21 04:40 10/19/21 04:40 Labs: Laboratory Results - last 24 hr 10/19/21 10/19/21 04:40 04:40 WBC 16.5 H RBC 4.05 L Hgb 12.5 L Hct 36.6 L MCV 90.4 MCH 30.8 MCHC 34.0 RDW 13.2 Plt Count 284 Neut % (Auto) 70.8 Lymph % (Auto) 12.7 L [place] % (Auto) 14.7 H Eos % (Auto) 1.6 L Baso % (Auto) 0.2 Neut # (Auto) 58859 H Lymph # (Auto) 2100 [place] # (Auto) 2400 H Eos # (Auto) 300 Baso # (Auto) 0 Sodium 137 Potassium 3.9 Chloride 106 Carbon Dioxide 21 L BUN 19 Creatinine 0.87 Estimated GFR > 60 BUN/Creatinine Ratio 21.8 Glucose 117 H Calcium 8.1 L Phosphorus 3.4 Magnesium 2.0 Total Bilirubin 0.7 AST 26 ALT 19 Alkaline Phosphatase 62 Total Protein 6.4 Albumin 3.2 L Globulin 3.2 Albumin/Globulin Ratio 1.0 PFSH Medical History Gout Hypertension Social History household members: spouse Smoking Status: Never smoker Assessment & Plan Assessment & Plan narrative: The patient has a right foot cellulitis.? There is no evidence on examination or CT scan to show abscess or osteomyelitis.? His white count is slowly dropping while he has been on IV antibiotics:Cefepime and Vanco, and PO Clindamycin and Doxycyclin.? Cultures are currently pending.? He does not appear to need surgery currently.? IV antibiotics should be continued, and discharge antibiotics will depend on ID recommendations.? Eventually if he continues to have a drop in white count and clinical improvement he can be discharged either on ongoing IV antibiotics or oral antibiotics depending on culture results.? The foot was redressed after examination this morning. -daily dressing changes -WBAT right lower extremity Time Spent With Patient Critical Care time: I spent a total of [] minutes of critical care time on this patient's care today; this time is exclusive of procedural time. Quality VTE Deep Vein Thrombosis/Pulmonary Embolism Present on Admission: No
[2021-10-19] MEDS: AMLODIPINE 5 MG TABLET 10 MG PO (10:08)
[2021-10-19] MEDS: allopurinoL 100 MG TABLET PO (10:08)
[2021-10-19] MEDS: LACTOBACILLUS ACIDOPHILUS TABLET 1 EACH PO ×3 (10:08→17:07)
[2021-10-19] MEDS: DOXYCYCLINE HYCLATE 100 MG TABLET PO ×2 (10:08→20:39)
[2021-10-19] MEDS: ENOXAPARIN 40 MG/0.4 ML SYRINGE SUBCUT (10:08)
[2021-10-19 11:27] LABS: Vancomycin Trough 9.6 ug/mL (10-20)
[2021-10-19] MEDS: VANCOMYCIN TROUGH 1 REQUEST MISC (12:09)
[2021-10-19] MEDS: VANCOMYCIN 1,250 MG/250 ML PIGGYBACK 250 MG IV ×2 (12:31→23:54)
[2021-10-19] MEDS: SODIUM CHLORIDE 0.9% FLUSH 10 ML IV ×3 (12:37→23:54)
--- NOTE | 2021-10-19 13:15 | CM.DPC ---
DCP Cont. Per MD, cultures are still pending and once resulted, will confirm if pt needs home IV abx or oral abx. DCP faxed referral and clinicals to [facility] to review for coverage as patient has Medicare but also has [employer]. Rich @ [facility] called and informed. Currently no PICC placed. Awaiting cultures P: DCP to continue to follow and determine medication status for home or oral abx. Betzaida Jasso RN/DCP
--- NOTE | 2021-10-19 16:15 | P.PN_ITS ---
Subjective Subjective Date Patient Seen: 10/19/21 Interval history: ?THIS IS A VERY PLEASANT 86-YEAR-OLD MALE ADMITTED WITH A ? BLISTERING CELLULITIC LESION TO THE RIGHT LOWER EXTREMITY. ?ORTHOPEDIC SURGERY CONSULTED ON 10/17.? ? CULTURES PENDING ?TODAY ? REPORTED FEELING SLIGHTLY FEVERISH OVERNIGHT ?DENIES ANY CHILLS ?NO INCREASING PAIN TO THE LOWER EXTREMITIES ?NO CHEST PAIN.? NO CHEST? PALPITATIONS. ? NO INCREASING SHORTNESS OF BREATH Exam Vital Signs (past 8 hours): - 10/19/21 09:00 10/19/21 10:00 10/19/21 12:23 Temperature 98.1 F 98.0 F Pulse Rate 80 83 Respiratory Rate 16 17 Blood Pressure 151/80 H 147/81 H Pulse Oximetry 95 95 98 10/19/21 13:09 10/19/21 14:00 10/19/21 16:00 Temperature 97.9 F Pulse Rate 84 Respiratory Rate 16 Blood Pressure 155/80 H Pulse Oximetry 98 98 95 Oxygen Delivery Method Room Air Oxygen Flow Rate 0 Narrative Exam Narrative: NO ACUTE DISTRESS.? PATIENT IS ALERT ORIENTED X3. HEAD ATRAUMATIC NORMOCEPHALIC NECK : SUPPLE WITHOUT ADENOPATHY NO CAROTID BRUITS EYE:? EOMI, PERRLA, NORMAL CONJUNCTIVA; NO JAUNDICE CHEST:? REGULAR RATE.? ? NO RUBS.? PMI IS NON DISPLACED.? NO MURMURS; NORMAL S1- S2 PULMONARY:? DECREASED BS OVER THE BASES.? MILD BIBASILAR CRACKLES NOTED; NO INCREASED DULLNESS TO PERCUSSION ABDOMEN: ? SOFT.? NONTENDER.? NONDISTENDED.? BOWEL SOUNDS ARE PRESENT IN ALL 4 QUADRANTS.? NO MASS. EXTREMITIES:? EDEMA NOTED ON THE RIGHT LOWER EXTREMITY.?? REDNESS NOTED ON THE DORSUM OF THE FOOT IN PROXIMITY TO THE 2ND TOE ON THE RIGHT WITH EXTENSION TO THE? HIND? FOOT AND THE LEG POSTERIORLY..? ? HARD CALLUS ON THE PLANTAR OF THE FOOT AGAIN AT THE LEVEL OF THE 2ND TOE.? REDNESS/APPRECIATED.? OPEN?/? DRAINING BLISTERS APPRECIATED. MODERATE AMOUNT OF SEROUS DRAINAGE NEURO:? CRANIAL NERVES 2-12 GROSSLY INTACT. NO FOCAL NEUROLOGICAL DEFICIT NOTED. MSK:? NORMAL RANGE OF MOTION FOR AGE.? NO JOINT EFFUSION. SKIN: NO ECCHYMOSIS.? ? GOOD? TURGOR. :? NORMAL EXTERNAL GENITALIA. PSYCH :? APPROPRIATE MOOD AND AFFECT.? ALERT AWAKE ORIENTED X3 Objective Labs Result Diagrams: 10/19/21 04:40 10/19/21 04:40 Labs: Laboratory Results - last 24 hr 10/19/21 10/19/21 10/19/21 04:40 04:40 10:57 WBC 16.5 H RBC 4.05 L Hgb 12.5 L Hct 36.6 L MCV 90.4 MCH 30.8 MCHC 34.0 RDW 13.2 Plt Count 284 Neut % (Auto) 70.8 Lymph % (Auto) 12.7 L [place] % (Auto) 14.7 H Eos % (Auto) 1.6 L Baso % (Auto) 0.2 Neut # (Auto) 16321 H Lymph # (Auto) 2100 [place] # (Auto) 2400 H Eos # (Auto) 300 Baso # (Auto) 0 Sodium 137 Potassium 3.9 Chloride 106 Carbon Dioxide 21 L BUN 19 Creatinine 0.87 Estimated GFR > 60 BUN/Creatinine Ratio 21.8 Glucose 117 H Calcium 8.1 L Phosphorus 3.4 Magnesium 2.0 Total Bilirubin 0.7 AST 26 ALT 19 Alkaline Phosphatase 62 Total Protein 6.4 Albumin 3.2 L Globulin 3.2 Albumin/Globulin Ratio 1.0 Vancomycin Trough 9.6 L PFSH Medical History Gout Hypertension Social History household members: spouse Smoking Status: Never smoker Assessment & Plan Assessment & Plan narrative: IMPRESSION CELLULITIS TO RIGHT LOWER EXTREMITY/FOOT.? PRESENT ON ARRIVAL.? ORTHOPEDIC SURGERY CONSULTED LEUKOCYTOSIS.? LIKELY ASSOCIATED WITH ABOVE.? IMPROVED REACTIVE HYPERGLYCEMIA.? MONITOR ONLY FOR NOW GOUT PER HISTORY.? CONTINUE HOME MEDS HYPERTENSION PER HISTORY ANEMIA.? LIKELY CHRONIC DISEASE. PLAN PATIENT REPORTING PAIN TO THE LOWER EXTREMITY TODAY HOWEVER NO SIGN OF WORSENING INFECTIOUS PROCESS ASSISTANCE FROM THE SURGICAL TEAM GREATLY APPRECIATED CULTURES REMAIN NEGATIVE TO DATE WILL GET A CT SCAN IN THE MORNING TO FURTHER EVALUATE FOR ANY DEVELOPING ABSCESS CONTINUE CURRENT ABX THERAPY ADDITIONAL MANAGEMENT PER CLINICAL COURSE 10/18 ? ASSISTANCE FROM MULTIPLE ACCESSORY GREATLY APPRECIATED ? RECOMMENDATIONS NOTED AND APPRECIATED WELL ?CONTINUE CURRENT ANTIBIOTICS ?CULTURES? PENDING SO FAR ?WBC DID DECREASE SLIGHTLY TODAY ?WILL CONTINUE CURRENT ANTIBIOTICS FOR NOW ?DAILY DRESSING CHANGE PER ORTHOPEDIC SURGERY RECOMMENDATIONS ?DAILY CBC TO FOLLOW AGAIN IF SIGNIFICANT CHANGES HOW OLD THE OF REGARD TO THE? WBC COUNT, COULD CONSIDER ADDING DIFLUCAN ? TO COVER FOR YEAST ?ADDITIONAL MANAGEMENT PER CLINICAL COURSE 10/17 ?PATIENT IS STATUS POST LANCING OF THE BLISTER BY? ORTHOPEDIC SURGERY ?CULTURES HAS BEEN COLLECTED AND SENT TO THE LAB ?CONTINUE ANTIBIOTICS FOR NOW ?PATIENT IS ON VANCOMYCIN WHICH WAS ADDED TODAY ONCE AGAIN ?CONTINUE P.O.? CLINDA AND DOXY ?CONSIDER ADDING ANTIFUNGAL AGENT WELL IF INDICATED CLINICALLY. ? SHE IS ON CEFEPIME WELL. ? MONITOR CLOSELY FOR ANY SIGN OF COLITIS WHICH COULD BE A COMPLICATION FROM ANTIBIOTIC THERAPY. ? DAILY CBC TO FOLLOW ?AVOID PUTTING PRESSURE TO THE FOREFOOT ON THE RIGHT. ? HOWEVER ENCOURAGE PATIENT TO STAY MOBILE POSSIBLE ?PATIENT TO BE OUT OF BED AND IN CHAIR WITH EACH MEAL ?NURSING TO ENCOURAGE PATIENT TO USE THAT INCENTIVE SPIROMETRY DEVICE ORDERED ? ADDITIONAL MANAGEMENT PER CLINICAL COURSE ?POSSIBLE DISCHARGE IN NEXT 3-5 DAYS CLINICALLY STABLE 10/16 PATIENT REPORTED SWIMMING IN STANDING WATER ON VACATION. WORRY IS FOR POSSIBLE INFECTION WITH VIBRIO VERSUS STAPH VERSUS STREP VERSUS GRAM-NEGATIVE BACTERIA SUCH PSEUDOMONAS. PATIENT WILL BE STARTED ON BROAD-[facility] WAS GIVEN VANCOMYCIN IN THE ER WILL SWITCH TO DOXYCYCLINE TO COVER FOR VIBRIO WILL ALSO START ON CLINDAMYCIN TO COVER FOR STREPTOCOCCUS TOXIN CEFEPIME WILL COVER MOST G NEGATIVES WELL PSEUDOMONAS FOR NOW. WILL ALSO CONSIDER ANTIFUNGAL THERAPY WITH DIFLUCAN IF INDICATED CLINICALLY CULTURE WERE TAKEN IN THE ER REPORTEDLY. ONE OF THE BLISTERS WAS HAVING SOME DRAINAGE REPORTEDLY.? DISEASE NOT EVIDENT DURING MY EXAM. INITIAL CULTURE RESULTS SHOWING G POSITIVE RODS I EVER THIS IS LIKELY CONTAMINAT ION MIGHT NEED I AND D WITH ORTHOPEDIC SURGERY FOR AN ACCURATE CULTURE SAMPLE. ON THE MEANWHILE, WILL GET A CT SCAN THE LOWER EXTREMITY WITH RULE OUT ANY DEVELOPING ABSCESS. WILL CONSIDER MRI WELL IF INDICATED CLINICALLY DAILY CBC TO FOLLOW AVOID WEIGHT-BEARING AT THIS TIME UNTIL FURTHER WORKUP IS COMPLETED. MONITOR BLOOD SUGAR CLOSELY NO HISTORY OF DIABETES HOWEVER. SPOKE TO PATIENT WITH HIS AT BEDSIDE. QUESTIONS AND CONCERNS ADDRESSED TO EVERYBODY IN THE ROOM SATISFACTION AND UND ERSTANDING ADDITIONAL MANAGEMENT PER CLINICAL COURSE Time Spent With Patient Critical Care time: I spent a total of [] minutes of critical care time on this patient's care today; this time is exclusive of procedural time. Quality VTE Deep Vein Thrombosis/Pulmonary Embolism Present on Admission: No
[2021-10-19] MEDS: polyethylene glycoL 3350 17 GM POWD.PACK 34 GM PO (17:42)
--- NOTE | 2021-10-19 19:54 | PM.PN.1 ---
Subjective Subjective Date Patient Seen: 10/20/21 Interval history: THIS IS A VERY PLEASANT 86-YEAR-OLD MALE ADMITTED WITH A ? BLISTERING CELLULITIC LESION TO THE RIGHT LOWER EXTREMITY. ?ORTHOPEDIC SURGERY CONSULTED ON 10/17.? ? CULTURES PENDING ?TODAY ? REPORTED FEELING SLIGHTLY FEVERISH OVERNIGHT ?DENIES ANY CHILLS ?NO INCREASING PAIN TO THE LOWER EXTREMITIES ?NO CHEST PAIN.? NO CHEST? PALPITATIONS. ? NO INCREASING SHORTNESS OF BREATH Exam Vital Signs (past 8 hours): - Narrative Exam Narrative: NO ACUTE DISTRESS.? PATIENT IS ALERT ORIENTED X3. HEAD ATRAUMATIC NORMOCEPHALIC NECK : SUPPLE WITHOUT ADENOPATHY NO CAROTID BRUITS EYE:? EOMI, PERRLA, NORMAL CONJUNCTIVA; NO JAUNDICE CHEST:? REGULAR RATE.? ? NO RUBS.? PMI IS NON DISPLACED.? NO MURMURS; NORMAL S1-S2 PULMONARY:? DECREASED BS OVER THE BASES.? MILD BIBASILAR CRACKLES NOTED; NO INCREASED DULLNESS TO PERCUSSION ABDOMEN: ? SOFT.? NONTENDER.? NONDISTENDED.? BOWEL SOUNDS ARE PRESENT IN ALL 4 QUADRANTS.? NO MASS. EXTREMITIES:? EDEMA NOTED ON THE RIGHT LOWER EXTREMITY.?? REDNESS NOTED ON THE DORSUM OF THE FOOT IN PROXIMITY TO THE 2ND TOE ON THE RIGHT WITH EXTENSION TO THE? HIND? FOOT AND THE LEG POSTERIORLY..? ? HARD CALLUS ON THE PLANTAR OF THE FOOT AGAIN AT THE LEVEL OF THE 2ND TOE.? REDNESS/APPRECIATED.? OPEN?/? DRAINING BLISTERS APPRECIATED. MODERATE AMOUNT OF SEROUS DRAINAGE NEURO:? CRANIAL NERVES 2-12 GROSSLY INTACT. NO FOCAL NEUROLOGICAL DEFICIT NOTED. MSK:? NORMAL RANGE OF MOTION FOR AGE.? NO JOINT EFFUSION. SKIN: NO ECCHYMOSIS.? ? GOOD? TURGOR. :? NORMAL EXTERNAL GENITALIA. PSYCH :? APPROPRIATE MOOD AND AFFECT.? ALERT AWAKE ORIENTED X3 Objective Labs Result Diagrams: 10/20/21 11:50 10/19/21 04:40 Labs: Laboratory Results - last 24 hr 10/19/21 10/19/21 10/19/21 04:40 04:40 10:57 WBC 16.5 H RBC 4.05 L Hgb 12.5 L Hct 36.6 L MCV 90.4 MCH 30.8 MCHC 34.0 RDW 13.2 Plt Count 284 Neut % (Auto) 70.8 Lymph % (Auto) 12.7 L [place] % (Auto) 14.7 H Eos % (Auto) 1.6 L Baso % (Auto) 0.2 Neut # (Auto) 50185 H Lymph # (Auto) 2100 [place] # (Auto) 2400 H Eos # (Auto) 300 Baso # (Auto) 0 Sodium 137 Potassium 3.9 Chloride 106 Carbon Dioxide 21 L BUN 19 Creatinine 0.87 Estimated GFR > 60 BUN/Creatinine Ratio 21.8 Glucose 117 H Calcium 8.1 L Phosphorus 3.4 Magnesium 2.0 Total Bilirubin 0.7 AST 26 ALT 19 Alkaline Phosphatase 62 Total Protein 6.4 Albumin 3.2 L Globulin 3.2 Albumin/Globulin Ratio 1.0 Vancomycin Trough 9.6 L PFSH Medical History Gout Hypertension Social History household members: spouse Smoking Status: Never smoker Assessment & Plan Assessment & Plan narrative: IMPRESSION CELLULITIS TO RIGHT LOWER EXTREMITY/FOOT.? PRESENT ON ARRIVAL.? ORTHOPEDIC SURGERY CONSULTED LEUKOCYTOSIS.? LIKELY ASSOCIATED WITH ABOVE.? IMPROVED REACTIVE HYPERGLYCEMIA.? MONITOR ONLY FOR NOW GOUT PER HISTORY.? CONTINUE HOME MEDS HYPERTENSION PER HISTORY ANEMIA.? LIKELY CHRONIC DISEASE. PLAN ?PATIENT ? REPORTING PAIN TO THE LOWER EXTREMITY TODAY ?HOWEVER NO SIGN OF WORSENING INFECTIOUS PROCESS ?ASSISTANCE FROM THE SURGICAL TEAM GREATLY APPRECIATED ?CULTURES REMAIN NEGATIVE TO DATE ?WILL GET A CT SCAN IN THE MORNING TO FURTHER EVALUATE FOR ANY DEVELOPING ABSCESS CONTINUE CURRENT ABX THERAPY ?ADDITIONAL MANAGEMENT PER CLINICAL COURSE 10/18 ? ASSISTANCE FROM MULTIPLE ACCESSORY GREATLY APPRECIATED ? RECOMMENDATIONS NOTED AND APPRECIATED WELL ?CONTINUE CURRENT ANTIBIOTICS ?CULTURES? PENDING SO FAR ?WBC DID DECREASE SLIGHTLY TODAY ?WILL CONTINUE CURRENT ANTIBIOTICS FOR NOW ?DAILY DRESSING CHANGE PER ORTHOPEDIC SURGERY RECOMMENDATIONS ?DAILY CBC TO FOLLOW AGAIN IF SIGNIFICANT CHANGES HOW OLD THE OF REGARD TO THE? WBC COUNT, COULD CONSIDER ADDING DIFLUCAN ? TO COVER FOR YEAST ?ADDITIONAL MANAGEMENT PER CLINICAL COURSE 10/17 ?PATIENT IS STATUS POST LANCING OF THE BLISTER BY? ORTHOPEDIC SURGERY ?CULTURES HAS BEEN COLLECTED AND SENT TO THE LAB ?CONTINUE ANTIBIOTICS FOR NOW ?PATIENT IS ON VANCOMYCIN WHICH WAS ADDED TODAY ONCE AGAIN ?CONTINUE P.O.? CLINDA AND DOXY ?CONSIDER ADDING ANTIFUNGAL AGENT WELL IF INDICATED CLINICALLY. ? SHE IS ON CEFEPIME WELL. ? MONITOR CLOSELY FOR ANY SIGN OF COLITIS WHICH COULD BE A COMPLICATION FROM ANTIBIOTIC THERAPY. ? DAILY CBC TO FOLLOW ?AVOID PUTTING PRESSURE TO THE FOREFOOT ON THE RIGHT. ? HOWEVER ENCOURAGE PATIENT TO STAY MOBILE POSSIBLE ?PATIENT TO BE OUT OF BED AND IN CHAIR WITH EACH MEAL ?NURSING TO ENCOURAGE PATIENT TO USE THAT INCENTIVE SPIROMETRY DEVICE ORDERED ? ADDITIONAL MANAGEMENT PER CLINICAL COURSE ?POSSIBLE DISCHARGE IN NEXT 3-5 DAYS CLINICALLY STABLE 10/16 PATIENT REPORTED SWIMMING IN STANDING WATER ON VACATION. WORRY IS FOR POSSIBLE INFECTION WITH VIBRIO VERSUS STAPH VERSUS STREP VERSUS GRAM-NEGATIVE BACTERIA SUCH PSEUDOMONAS. PATIENT WILL BE STARTED ON BROAD-[facility] WAS GIVEN VANCOMYCIN IN THE ER WILL SWITCH TO DOXYCYCLINE TO COVER FOR VIBRIO WILL ALSO START ON CLINDAMYCIN TO COVER FOR STREPTOCOCCUS TOXIN CEFEPIME WILL COVER MOST G NEGATIVES WELL PSEUDOMONAS FOR NOW. WILL ALSO CONSIDER ANTIFUNGAL THERAPY WITH DIFLUCAN IF INDICATED CLINICALLY CULTURE WERE TAKEN IN THE ER REPORTEDLY. ONE OF THE BLISTERS WAS HAVING SOME DRAINAGE REPORTEDLY.? DISEASE NOT EVIDENT DURING MY EXAM. INITIAL CULTURE RESULTS SHOWING G POSITIVE RODS I EVER THIS IS LIKELY CONTAMINATION MIGHT NEED I AND D WITH ORTHOPEDIC SURGERY FOR AN ACCURATE CULTURE SAMPLE. ON THE MEANWHILE, WILL GET A CT SCAN THE LOWER EXTREMITY WITH RULE OUT ANY DEVELOPING ABSCESS. WILL CONSIDER MRI WELL IF INDICATED CLINICALLY DAILY CBC TO FOLLOW AVOID WEIGHT-BEARING AT THIS TIME UNTIL FURTHER WORKUP IS COMPLETED. MONITOR BLOOD SUGAR CLOSELY NO HISTORY OF DIABETES HOWEVER. SPOKE TO PATIENT WITH HIS AT BEDSIDE. QUESTIONS AND CONCERNS ADDRESSED TO EVERYBODY IN THE ROOM SATISFACTION AND UNDERSTANDING ADDITIONAL MANAGEMENT PER CLINICAL COURSE Time Spent With Patient Critical Care time: I spent a total of [] minutes of critical care time on this patient's care today; this time is exclusive of procedural time. Quality VTE Deep Vein Thrombosis/Pulmonary Embolism Present on Admission: No
[2021-10-19] MEDS: SENNOSIDES 8.6 MG TABLET 17.2 MG PO (20:39)
[2021-10-19] MEDS: FAMOTIDINE 20 MG TABLET PO (20:39)
[2021-10-20] VITALS (7 sets, daily range): BP systolic 120–156; BP diastolic 64–80; PULSE 72–94; RESP 16–18; TEMP 35.8–37.2; O2SAT 92–98
--- NOTE | 2021-10-20 00:43 | PC.NURSE ---
Patient is alert and oriented. Breath sounds CTA with RA sat of 94%. HRR. Denied nausea. BT hyperactive; abdomen is soft with some mild distention. Patient reporting he has not had a BM in 1 week; was medicated on previous shift with Miralax and given Senna at hs. Is voiding per urinal; denies dysuria. Is able to move himself in bed. Gait not assessed but reports he was up to take shower on previous shift and used walker and 1 assist. Reports chronic numbness in toes of bilateral feet and no new numbness/tingling; has good pedal pulses. Dressing to right foot is intact with some red drainage noted around toe. Erythema of foot and extending up to ankle/lower leg and patient reports no improvement in erythema over since admit. Denied any pain. Refusing to use SCD's so reminded to ankle wave when awake. Fall risk score is moderate but patient calls for assistance appropriately so alarm is not in use at this time.
[2021-10-20] MEDS: CEFEPIME 1 GM in SODIUM CHLORIDE 0.9% 100 ML IV ×2 (03:47→15:49)
[2021-10-20] MEDS: SODIUM CHLORIDE 0.9% FLUSH 10 ML IV ×2 (03:47→09:35)
[2021-10-20 05:42] LABS: Magnesium 2.1 mg/dL (1.6-2.3); Phosphorous 3.9 mg/dL (2.3-3.7)
[2021-10-20] MEDS: CLINDAMYCIN 150 MG CAPSULE 300 MG PO ×2 (06:00→15:46)
--- NOTE | 2021-10-20 06:00 | DI.CT.S_ITS ---
PROCEDURE: CT FOOT RIGHT WITH CON INDICATIONS: Right foot infection. TECHNIQUE: Noncontrast 1-1.5 mm axial sections acquired from above the tibiotalar joint to the bottom of the calcaneus, with coronal and sagittal reformats. COMPARISON: [facility], CT, CT FOOT RIGHT WITH CON, 10/16/2021, 15:47. FINDINGS: Image quality: Excellent. 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 No acute fracture or dislocation. Well corticated bony fragments adjacent to tip of medial malleolus are again seen suggestive of old healed injury. No suspicious intraosseous lesion. No definite bony erosion is seen to suggest osteomyelitis. Small plantar and dorsal calcaneal enthesophytes are again seen. Soft tissues: There is interval worsening of soft tissue swelling and edema around ankle joint extending to right forefoot particularly over dorsal aspect. There is small amount of subcutaneous emphysema seen in medial forefoot soft tissue particularly adjacent to medial last SPECT of stay well at school of 2nd proximal phalangeal shaft. The possible dorsal soft tissue else over a prince at the level of 1st and 2nd toe is seen. No discrete peripheral enhancing fluid collection is identified in foot or ankle. No abnormal soft tissue calcifications. IMPRESSION: 1. Interval worsening of cellulitis involving right ankle and foot with now small amount of subcutaneous emphysema situated between 1st and 2nd toe at the level of 2nd proximal phalanx. No discrete drainable abscess collection is seen. Possible dorsal ulcerations. 2. Osteoarthritic changes throughout ankle and foot. No definite CT evidence of osteomyelitis is seen. No acute fracture or dislocation. Dictated by: Adan Virgen M.D. on 10/20/2021 at 8:16 Approved by: Adan Virgen M.D. on 10/20/2021 at 8:24
[2021-10-20] MEDS: allopurinoL 100 MG TABLET PO (09:34)
[2021-10-20] MEDS: AMLODIPINE 5 MG TABLET 10 MG PO (09:34)
[2021-10-20] MEDS: DOXYCYCLINE HYCLATE 100 MG TABLET PO (09:34)
[2021-10-20] MEDS: LACTOBACILLUS ACIDOPHILUS TABLET 1 EACH PO ×3 (09:34→17:51)
[2021-10-20] MEDS: ENOXAPARIN 40 MG/0.4 ML SYRINGE SUBCUT (09:34)
[2021-10-20] MEDS: FAMOTIDINE 20 MG TABLET PO (09:35)
[2021-10-20 12:07] LABS: Hematocrit 37.6 % (41-53); Hemoglobin 12.6 g/dL (13.5-17.5); Mean Corpuscular HGB Conc 33.5 % (30-36); Mean Corpuscular Hemoglobin 30.6 PG (26-34); Mean Corpuscular Volume 91.5 fL (80-100); Platelet Count 345 X10^3/uL (150-400); Red Blood Cell Count 4.11 X10^6/uL (4.5-5.9); Red Cell Distribution Width 13.2 % (11.6-14.8); White Blood Cell Count 13.7 X10^3/uL (4.5-11.0)
[2021-10-20 12:09] LABS: Add Manual Diff / Slide Review YES
[2021-10-20] MEDS: VANCOMYCIN 1,250 MG/250 ML PIGGYBACK 250 MG IV (12:10)
[2021-10-20 12:36] LABS: Neutrophils Absolute Manual 8768 /uL (3000-5900); RBC Morphology Normal Morphology; Total Cells Counted 100
--- NOTE | 2021-10-20 14:15 | PT.IIE ---
Current Diagnoses Cellulitis of right toe (10/16/21) Medical History (Last Reviewed 10/19/21 @ 10:02 by Ivis Harkins PA-C) Gout Hypertension Physical Therapy Inpatient Evaluation/Re-Eval M1 PT/OT-IP Prior Functional Status Start: 10/20/21 15:53 Freq: NEEDED Status: Active Protocol: Document 10/20/21 14:15 AB (Rec: 10/20/21 16:13 AB [id number]) Medical Review Prior Functional Status Medical History Reviewed Yes Communication able to make needs known Mobility and Gait pt stated that he is independent with all mobilities and ambulation without AD Social History Household Members spouse Living Arrangements Apartment/Condo Number of Floors (Floors) Two Floors Number of Stairs To Enter/Railing? no steps to enter: pt may stay on main level if needed has 15 steps down with L rail descending to office Home Environment Standard Height Toilet,Walk in Shower Home Equipment Hand Held Shower M2 PT-IP Current Condition Start: 10/20/21 15:53 Freq: NEEDED Status: Active Protocol: Document 10/20/21 14:15 AB (Rec: 10/20/21 16:13 AB [id number]) Physical Therapy Current Condition Current Condition Evaluation Date 10/20/21 Treatment Diagnosis R foot cellulitis; difficulty in walking Onset Date 10/16/21 M3 PT-IP Subjective Start: 10/20/21 15:53 Freq: NEEDED Status: Active Protocol: Document 10/20/21 14:15 AB (Rec: 10/20/21 16:13 AB [id number]) Subjective Physical Therapy Visit Type Type Initial Evaluation Visit Start Time 14:15 Visit Stop Time 14:50 Total Visit Minutes 35 Number of POLICE RADIO DISPATCHER Visits 0 Physical Therapy Visit Comments Patient Comments agreeable to do PT Therapy Pain Assessment Pain Present Pain Present Denied Pain M4 PT-IP Mobility and Gait Start: 10/20/21 15:53 Freq: NEEDED Status: Active Protocol: Document 10/20/21 14:15 AB (Rec: 10/20/21 16:13 AB [email or web address]) PT-Bed Mobility Assessment Supine to Sit Supine to Sit Standby Assistance Sit to Supine Sit to Supine Standby Assistance PT-Transfer Assessment Sit to and From Stand Sit to and from Stand Contact Guard Assistance,1 Person Assistance Equipment Transfer Assistive Device Gait Belt,Front Wheeled Walker Orthotic/Prosthetic Devices or Brace: No Comments Mobility Comments educated pt on NWB on R forefoot but can heel weight bear per hospitalist. agreed to use post-op shoe and provided. pt signed papers for shoe. completed supine to sit SBA. able to sit on EOB SBA. assisted with donning of socks and shoes. completed sit to stand CGA and ambulated in room without AD min A 20 ft (+) LOB requiring min A. pt educated on ambulation techniques with post-op shoe. ambulated in room again ~ 25 ft and continues to require min A and is unsteady. educated pt on safety and agreed to use FWW. ambulated in room using FWW CGA ~ 30 ft. presents with steadier gait. pt went back to bed and completed sit to supine SBA. positioned in bed. call light and table placed within reach . Gait Assessment Gait Gait Assistance Required: Contact Guard Assist,Minimum Assistance Distance (Feet) 30 Able to Maintain Weight Bearing Status Yes During Gait Assistive Devices Assistive Device Gait Belt,Front Wheeled Walker Orthotic/Prosthetic Devices or Brace: No Gait Deviations General Gait Pattern Antalgic,Decreased Stride Length,Decreased Feet Clearance Factors Limiting Gait Function Factors Limiting Gait Function Decreased Activity Tolerance, Decreased Strength,Limited Range of Motion,Poor Balance, Poor Safety Awareness PT-Balance Assessment Sitting Balance and Reactions Static Sitting Balance Ability Good Dynamic Sitting Balance Ability Good Standing Balance and Reactions Static Standing Balance Ability Fair Dynamic Standing Balance Ability Fair Device Used using FWW M5 PT-IP Objective Assessments Start: 10/20/21 15:53 Freq: NEEDED Status: Active Protocol: Document 10/20/21 14:15 AB (Rec: 10/20/21 16:13 AB [id number]) Orientation Orientation/Cognition Level of Alertness Alert Orientation Name,Place,Situation Language Function Ability No Deficits Noted Safety Awareness Decreased Safety Awareness Memory Description No Deficits Noted,Short Term Impaired Gross Range of Motion Lower Extremity ROM Assessment Within Functional Limits Strength Lower Extremity Strength Assessment Right Impaired Hip 4-/5 Knee 4-/5 Muscle Tone Muscle Tone WNL Yes M6 PT-IP Treatment Start: 10/20/21 15:53 Freq: NEEDED Status: Active Protocol: Document 10/20/21 14:15 AB (Rec: 10/20/21 16:13 AB [email or web address]) Physical Therapy Treatment Education Education Provided Safety M7 PT-IP Assessment and Plan Start: 10/20/21 15:53 Freq: NEEDED Status: Active Protocol: Document 10/20/21 14:15 AB (Rec: 10/20/21 16:13 AB [id number]) PT Summary Assessment and Plan Potential Rehabilitation Potential Good Status of Condition at Evaluation Evolving Summary Impairments Pain,ROM,Strength,Balance, Coordination,Sensation,Tone, Cognition,Bed Mobility, Transfers,Gait,Activity Tolerance Assessment Summary pt requiring min A with ambulation without AD but only CGA using FWW. front off- loading post-op shoe provided to assist with R NWB on forefoot but can heel weight bear. pt lives with spouse and pt informed spouse to get a FWW for him. will continue to assess progress. Goals Bed Mobility Goal Independent Transfer Goal Independent,Front Wheeled Walker Gait Goal Independent,Front Wheel Walker Gait Distance 200 Other Goals up/down 15 steps L rail descending SBA Days to Meet Goals 10 Frequency of Treatment Frequency Of Treatment Once a Day Treatment Plan Physical Therapy Treatment Plan Bed Mobility Training,Transfer Training,Gait Training, Therapeutic Exercise,Balance Retraining,Discharge Planning, Hot or Cold Pack,Neuromuscular Re-ed,Coordination Retraining ,Manual Therapy Weight Bearing Status Allowed Weight Bearing Amount (enter % RLE forefoot NWB but may heel or #) (%) weight bear Recommendations To Nursing Amount of Assist Needed 1 Person Assist Discharge Recommendations PT Discharge Recommendations Home with Assistance, Outpatient PT Equipment Needed for Home Before FWW Discharge Transportation Needs at Discharge Private Vehicle
--- NOTE | 2021-10-20 15:17 | CM.DPC ---
DCP Cont. Pt still anticipated to be inpatient for a couple more days per MD and pending cultures. Rich from [facility] called today to inquire about patient status. Per Rich, pt insurance will allow him to have both cefepime and vanco at home for 85/per week. Rich is on standby in case pt needs IV home abx. DCP to continue to follow case and assess pt for needs. Betzaida Jasso RN/DCP
--- NOTE | 2021-10-20 18:40 | PM.PN.1 ---
Subjective Subjective Date Patient Seen: 10/20/21 Interval history: IMPRESSION ?THIS IS A VERY PLEASANT 86-YEAR-OLD MALE ADMITTED WITH A ? BLISTERING CELLULITIC LESION TO THE RIGHT LOWER EXTREMITY. ?ORTHOPEDIC SURGERY CONSULTED ON 10/17.? CT 10/18 WITHOUT EVIDENCE OF ABSCESS REPEAT CT ON WITH EVIDENCE OF SOME SUBCU AIR AND WORSENING CELLULITIS. CULTURES WITHOUT GROSS TODAY ?TODAY SOME ANXIETY REPORTED ANXIOUS TO GOING HOME HOWEVER CONTINUE TO DENY ANY FEVER OR CHILLS ?NO CHEST PAIN.? NO CHEST? PALPITATIONS. ? NO INCREASING SHORTNESS OF BREATH Exam Vital Signs (past 8 hours): - 10/20/21 12:00 Temperature 96.4 F L Pulse Rate 72 Respiratory Rate 18 Blood Pressure 147/74 H Pulse Oximetry 94 Oxygen Delivery Method Room Air Oxygen Flow Rate 0 Narrative Exam Narrative: NO ACUTE DISTRESS.? PATIENT IS ALERT ORIENTED X3. HEAD ATRAUMATIC NORMOCEPHALIC NECK : SUPPLE WITHOUT ADENOPATHY NO CAROTID BRUITS EYE:? EOMI, PERRLA, NORMAL CONJUNCTIVA; NO JAUNDICE CHEST:? REGULAR RATE.? ? NO RUBS.? PMI IS NON DISPLACED.? NO MURMURS; NORMAL S1-S2 PULMONARY:? DECREASED BS OVER THE BASES.? MILD BIBASILAR CRACKLES NOTED; NO INCREASED DULLNESS TO PERCUSSION ABDOMEN: ? SOFT.? NONTENDER.? NONDISTENDED.? BOWEL SOUNDS ARE PRESENT IN ALL 4 QUADRANTS.? NO MASS. EXTREMITIES:? EDEMA NOTED ON THE RIGHT LOWER EXTREMITY.?? REDNESS NOTED ON THE DORSUM OF THE FOOT IN PROXIMITY TO THE 2ND TOE ON THE RIGHT WITH EXTENSION TO THE? HIND? FOOT AND THE LEG POSTERIORLY..? ? HARD CALLUS ON THE PLANTAR OF THE FOOT AGAIN AT THE LEVEL OF THE 2ND TOE.? REDNESS/APPRECIATED.? OPEN?/? DRAINING BLISTERS APPRECIATED. MODERATE AMOUNT OF SEROUS DRAINAGE NEURO:? CRANIAL NERVES 2-12 GROSSLY INTACT. NO FOCAL NEUROLOGICAL DEFICIT NOTED. MSK:? NORMAL RANGE OF MOTION FOR AGE.? NO JOINT EFFUSION. SKIN: NO ECCHYMOSIS.? ? GOOD? TURGOR. :? NORMAL EXTERNAL GENITALIA. PSYCH :? APPROPRIATE MOOD AND AFFECT.? ALERT AWAKE ORIENTED X3 Objective Labs Result Diagrams: 10/20/21 11:50 10/19/21 04:40 Labs: Laboratory Results - last 24 hr 10/20/21 10/20/21 04:33 11:50 WBC 13.7 H RBC 4.11 L Hgb 12.6 L Hct 37.6 L MCV 91.5 MCH 30.6 MCHC 33.5 RDW 13.2 Plt Count 345 Neut % (Auto) Not Reportable Lymph % (Auto) Not Reportable [place] % (Auto) Not Reportable Eos % (Auto) Not Reportable Baso % (Auto) Not Reportable Lymph # (Auto) Not Reportable [place] # (Auto) Not Reportable Baso # (Auto) Not Reportable Total Counted 100 Seg Neutrophils % 62.0 Band Neutrophils % 2.0 L Lymphocytes % (Manual) 19.0 L Atypical Lymphs % 6.0 H Monocytes % (Manual) 10.0 Eosinophils % (Manual) 1.0 L Neutrophils # (Manual) 8768 H RBC Morphology Normal morphology Phosphorus 3.9 H Magnesium 2.1 PFSH Medical History Gout Hypertension Social History household members: spouse Smoking Status: Never smoker Assessment & Plan Assessment & Plan narrative: IMPRESSION CELLULITIS TO RIGHT LOWER EXTREMITY/FOOT.? PRESENT ON ARRIVAL.? ORTHOPEDIC SURGERY CONSULTED LEUKOCYTOSIS.? LIKELY ASSOCIATED WITH ABOVE.? IMPROVED REACTIVE HYPERGLYCEMIA.? MONITOR ONLY FOR NOW GOUT PER HISTORY.? CONTINUE HOME MEDS HYPERTENSION PER HISTORY ANEMIA.? LIKELY CHRONIC DISEASE. PLAN CT SCAN REPEATED THIS MORNING PER PATIENT REQUEST/CONCERNS CT SCAN SHOWING EVIDENCE OF POSSIBLE WORSENING OF THE CELLULITIS ENPHYSEMA SUBCUTANEOUS AIR PRESENT/ REPORTED BY RADIOLOGY WILL MAKE THE SURGERY TEAM AWARE OF THE FINDING WILL [facility] COVERAGE BY ADDING ANTIFUNGAL TO REGIMENT CULTURES REMAINS NEGATIVE HOWEVER CONTINUE VANCO/CLINDA NAD CEFEPIME COULD CHANGE DOXY TO IVF ROUTE WELL 10/19 ?PATIENT ? REPORTING PAIN TO THE LOWER EXTREMITY TODAY ?HOWEVER NO SIGN OF WORSENING INFECTIOUS PROCESS ?ASSISTANCE FROM THE SURGICAL TEAM GREATLY APPRECIATED ?CULTURES REMAIN NEGATIVE TO DATE ?WILL GET A CT SCAN IN THE MORNING TO FURTHER EVALUATE FOR ANY DEVELOPING ABSCESS CONTINUE CURRENT ABX THERAPY ?ADDITIONAL MANAGEMENT PER CLINICAL COURSE PROGNOSIS IS GUARDED 10/18 ? ASSISTANCE FROM MULTIPLE ACCESSORY GREATLY APPRECIATED ? RECOMMENDATIONS NOTED AND APPRECIATED WELL ?CONTINUE CURRENT ANTIBIOTICS ?CULTURES? PENDING SO FAR ?WBC DID DECREASE SLIGHTLY TODAY ?WILL CONTINUE CURRENT ANTIBIOTICS FOR NOW ?DAILY DRESSING CHANGE PER ORTHOPEDIC SURGERY RECOMMENDATIONS ?DAILY CBC TO FOLLOW AGAIN IF SIGNIFICANT CHANGES HOW OLD THE OF REGARD TO THE? WBC COUNT, COULD CONSIDER ADDING DIFLUCAN ? TO COVER FOR YEAST ?ADDITIONAL MANAGEMENT PER CLINICAL COURSE 10/17 ?PATIENT IS STATUS POST LANCING OF THE BLISTER BY? ORTHOPEDIC SURGERY ?CULTURES HAS BEEN COLLECTED AND SENT TO THE LAB ?CONTINUE ANTIBIOTICS FOR NOW ?PATIENT IS ON VANCOMYCIN WHICH WAS ADDED TODAY ONCE AGAIN ?CONTINUE P.O.? CLINDA AND DOXY ?CONSIDER ADDING ANTIFUNGAL AGENT WELL IF INDICATED CLINICALLY. ? SHE IS ON CEFEPIME WELL. ? MONITOR CLOSELY FOR ANY SIGN OF COLITIS WHICH COULD BE A COMPLICATION FROM ANTIBIOTIC THERAPY. ? DAILY CBC TO FOLLOW ?AVOID PUTTING PRESSURE TO THE FOREFOOT ON THE RIGHT. ? HOWEVER ENCOURAGE PATIENT TO STAY MOBILE POSSIBLE ?PATIENT TO BE OUT OF BED AND IN CHAIR WITH EACH MEAL ?NURSING TO ENCOURAGE PATIENT TO USE THAT INCENTIVE SPIROMETRY DEVICE ORDERED ? ADDITIONAL MANAGEMENT PER CLINICAL COURSE ?POSSIBLE DISCHARGE IN NEXT 3-5 DAYS CLINICALLY STABLE 10/16 PATIENT REPORTED SWIMMING IN STANDING WATER ON VACATION. WORRY IS FOR POSSIBLE INFECTION WITH VIBRIO VERSUS STAPH VERSUS STREP VERSUS GRAM-NEGATIVE BACTERIA SUCH PSEUDOMONAS. PATIENT WILL BE STARTED ON [facility] COVERAGE ANTIBIOTICS WAS GIVEN VANCOMYCIN IN THE ER WILL SWITCH TO DOXYCYCLINE TO COVER FOR VIBRIO WILL ALSO START ON CLINDAMYCIN TO COVER FOR STREPTOCOCCUS TOXIN CEFEPIME WILL COVER MOST G NEGATIVES WELL PSEUDOMONAS FOR NOW. WILL ALSO CONSIDER ANTIFUNGAL THERAPY WITH DIFLUCAN IF INDICATED CLINICALLY CULTURE WERE TAKEN IN THE ER REPORTEDLY. ONE OF THE BLISTERS WAS HAVING SOME DRAINAGE REPORTEDLY.? DISEASE NOT EVIDENT DURING MY EXAM. INITIAL CULTURE RESULTS SHOWING G POSITIVE RODS I EVER THIS IS LIKELY CONTAMINATION MIGHT NEED I AND D WITH ORTHOPEDIC SURGERY FOR AN ACCURATE CULTURE SAMPLE. ON THE MEANWHILE, WILL GET A CT SCAN THE LOWER EXTREMITY WITH RULE OUT ANY DEVELOPING ABSCESS. WILL CONSIDER MRI WELL IF INDICATED CLINICALLY DAILY CBC TO FOLLOW AVOID WEIGHT-BEARING AT THIS TIME UNTIL FURTHER WORKUP IS COMPLETED. MONITOR BLOOD SUGAR CLOSELY NO HISTORY OF DIABETES HOWEVER. SPOKE TO PATIENT WITH HIS AT BEDSIDE. QUESTIONS AND CONCERNS ADDRESSED TO EVERYBODY IN THE ROOM SATISFACTION AND UNDERSTANDING ADDITIONAL MANAGEMENT PER CLINICAL COURSE Time Spent With Patient Critical Care time: I spent a total of [] minutes of critical care time on this patient's care today; this time is exclusive of procedural time. Quality VTE Deep Vein Thrombosis/Pulmonary Embolism Present on Admission: No
--- NOTE | 2021-10-20 19:01 | P.PN_ITS ---
Subjective Subjective Date Patient Seen: 10/20/21 Time Patient Seen: 19:01 Interval history: The patient reports that he is seeing minimal improvement with his foot. A new CT scan was done this morning. Exam Vital Signs (past 8 hours): - 10/20/21 12:00 10/20/21 16:00 Temperature 96.4 F L 97.2 F L Pulse Rate 72 75 Respiratory Rate 18 17 Blood Pressure 147/74 H 138/71 Pulse Oximetry 94 97 Oxygen Delivery Method Room Air Oxygen Flow Rate 0 Narrative Exam Narrative: The dorsum of the foot remains somewhat less swollen than when he was 1st seen however it is still erythematous. The base of the 2nd toe is dusky. He has decreased light touch in the 2nd toe. He has minimally palpable pulses in the dorsalis pedis and posterior tibial distribution. Objective Imaging CT scan of the right foot done today shows no discrete fluid collection to drain: My impression: Right foot CT scan shows no discrete fluid collection for drainage. Radiologist's impression: Radiologist's reports no discrete fluid collection, widespread degenerative changes and worsening appearing cellulitis with possible ulcerations on the dorsum of the foot. Labs Result Diagrams: 10/20/21 11:50 10/19/21 04:40 Labs: Laboratory Results - last 24 hr 10/20/21 10/20/21 04:33 11:50 WBC 13.7 H RBC 4.11 L Hgb 12.6 L Hct 37.6 L MCV 91.5 MCH 30.6 MCHC 33.5 RDW 13.2 Plt Count 345 Neut % (Auto) Not Reportable Lymph % (Auto) Not Reportable [place] % (Auto) Not Reportable Eos % (Auto) Not Reportable Baso % (Auto) Not Reportable Lymph # (Auto) Not Reportable [place] # (Auto) Not Reportable Baso # (Auto) Not Reportable Total Counted 100 Seg Neutrophils % 62.0 Band Neutrophils % 2.0 L Lymphocytes % (Manual) 19.0 L Atypical Lymphs % 6.0 H Monocytes % (Manual) 10.0 Eosinophils % (Manual) 1.0 L Neutrophils # (Manual) 8768 H RBC Morphology Normal morphology Phosphorus 3.9 H Magnesium 2.1 PFSH Medical History Gout Hypertension Social History household members: spouse Smoking Status: Never smoker Assessment & Plan Assessment & Plan narrative: He does not have an abscess to drain and it does not appear that he has osteomyelitis. I am concerned that his vascularity may be poor enough that he is not delivering the antibiotics to the area of infection satisfactorily. I would recommend assessment of his arterial blood flow in the lower extremities with a magnetic resonance arteriogram or other study recommended by Radiology. I should note that I am not a specialist in vascular surgery and defer to Radiology or a vascular surgery consult as to the appropriate study. If he has a bypassable lesion, transfer to a facility with vascular surgery would be appropriate. Time Spent With Patient Time with patient: less than 30 minutes Critical Care time: I spent a total of [] minutes of critical care time on this patient's care toda y; this time is exclusive of procedural time. Quality VTE Deep Vein Thrombosis/Pulmonary Embolism Present on Admission: No
--- NOTE | 2021-10-20 19:53 | PM.DS.1 ---
History of Present Illness History of Present Illness Date Patient Seen: 10/20/21 Chief complaint: infected rt foot Narrative: THIS IS A VERY PLEASANT 86-YEAR-OLD MALE FOR PAST MEDICAL HISTORY SIGNIFICANT FOR HYPERTENSION AND GOUT. PATIENT DENIED PRIOR DIAGNOSIS OF DIABETES OR CAD. DENIES ANY RECENT INJURY HOWEVER REPORTED A CHRONIC CALLUS LIKE LESION ON THE BOTTOM OF HIS FOOT. HE ALSO REPORTED A RECENT TRAVEL TO [place]. PATIENT PRESENTED TO THE HOSPITAL WITH SWELLING TO THE RIGHT LOWER EXTREMITY. THIS SAME FOOT WHICH CONTAINED THE CALLUS. PATIENT STATED THAT HE WENT TO VACATION AND HAD MULTIPLE INSTANCE OF SWIMMING IN STANDING WATER IN DIFFERENT POLLS WHILE ON VACATION. HE STATED THAT ONCE HE GOT BACK IN THE [facility] HIS LOWER EXTREMITY ON THE RIGHT STARTING SHOWING SIGN OF SWELLING. HE ALSO REPORTED SOME CHILLS. INCREASING REDNESS AND PAIN TO THE RIGHT LOWER EXTREMITY ALSO NOTED BY PATIENT. THIS WAS CONFIRMED BY HIS AT BEDSIDE. PATIENT DECIDED TO GO TO 1 OF THE LOCAL WALK-IN CLINIC AND WAS GIVEN KEFLEX. HOWEVER HE STATED THAT SINCE YESTERDAY THE AREA IS GETTING EVEN WORSE. REPORTING INCREASED PAIN. INCREASED CHILLS ALSO NOTED. HE REPORTED SOME MILD DRAINAGE AND A COUPLE OF BLISTERING LESION DEVELOPED AT THIS SITE WELL. IN THE ER, HIS VITAL SIGNS WERE FAIRLY STABLE. NO SIGNIFICANT INCREASE IN TEMPERATURE APPRECIATED. HOWEVER HIS WHITE BLOOD CELL COUNT IS ABOVE 20,000. HIS PLATELET COUNT IS FAIRLY STABLE ABOVE THE 200K KIDNEY FUNCTIONS WELL LIVER FUNCTIONS FAIRLY STABLE. LACTATE LEVEL WAS REASONABLE HOWEVER PROCALCITONIN WAS SLIGHTLY ELEVATED. Discharge Providers Provider Date of admission: 10/16/21 14:24 Discharge Date: 10/20/21 Primary care physician: Jimmy Cantu MD Consults: 10/17/21 08:59 Consult to Orthopedic Surgery Routine Comment: Consulting Provider: Mithc Dalton Reason for consultation: Cellulitis Has provider been notified: Yes 10/17/21 09:03 Consult to Orthopedic Surgery Routine Comment: Consulting Provider: Mitch Dalton Reason for consultation: CELLULITIS TO RT FOOT Has provider been notified: Yes 10/19/21 17:35 Consult to Physical Therapy Evaluate & Treat Comment: RT HEEL WEIGHT BEARING ONLY PLEASE. THANKS Physician Instructions: Evaluate and Treat Discharge provider: Chris Connor, Summary Hospital Course Discharge Diagnosis: CELLULITIS TO RIGHT LOWER EXTREMITY/FOOT.? PRESENT ON ARRIVAL.? ORTHOPEDIC SURGERY CONSULTED LEUKOCYTOSIS.? LIKELY ASSOCIATED WITH ABOVE.? IMPROVED REACTIVE HYPERGLYCEMIA.? MONITOR ONLY FOR NOW GOUT PER HISTORY.? CONTINUE HOME MEDS HYPERTENSION PER HISTORY ANEMIA.? LIKELY CHRONIC DISEASE. Hospital Course: THIS IS A VERY PLEASANT 86-YEAR-OLD MALE WAS ADMITTED TO THE HOSPITAL WITH A RIGHT LOWER EXTREMITY CELLULITIS. INITIAL CT SCAN DID NOT SHOW ANY SIGN OF AN ABSCESS. THE CT SCAN WAS AGAIN REPEATED TODAY AND AGAIN NO ABSCESS NOTED /REPORTED BY RADIOLOGY. THERE WAS HOWEVER FINDING WORRISOME FOR POSSIBLE EMPHYSEMA SUBCUTANEOUSLY. DEFINING WERE REPORTED TO SURGERY. SURGICAL TEAM FEEL PATIENT MIGHT NEED EVALUATION BY VASCULAR SURGERY AT SOME POINT. HOWEVER RECOMMENDATION WAS TO CONTINUE ANTIBIOTICS. STILL THE SURGICAL TEAM DID NOT SEE ANY NEED FOR IMMEDIATE SURGICAL INTERVENTION. PATIENT WOULD LIKE TO LEAVE THE HOSPITAL TODAY. HE WOULD LIKE TO BE ON ORAL ANTIBIOTICS. HE STATED THAT HE WILL FOLLOW-UP WITH HIS PRIMARY CARE PHYSICIAN FOR FURTHER CARE MANAGEMENT INDICATED. HIS WBC LEVEL BEEN IMPROVING. WILL BE DISCHARGED ON CLINDAMYCIN WELL DOXYCYCLINE AND LEVAQUIN. ADDITIONAL MANAGEMENT WILL BE DEFERRED TO HIS OUTPATIENT PROVIDERS. Status at Discharge Cognitive/behavioral status at discharge: oriented Functional status at discharge: independent ambulation Overall status at discharge: patient is progressing back to baseline Time Spent with Patient Time spent: Greater than 30 minutes Exam Vital Signs (past 8 hours): - 10/20/21 12:00 10/20/21 16:00 10/20/21 17:00 Temperature 96.4 F L 97.2 F L 97.2 F L Pulse Rate 72 75 75 Respiratory Rate 18 17 16 Blood Pressure 147/74 H 138/71 138/71 Pulse Oximetry 94 97 97 Oxygen Delivery Method Room Air Oxygen Flow Rate 0 Narrative Exam Narrative: NO ACUTE DISTRESS.? PATIENT IS ALERT ORIENTED X3. HEAD ATRAUMATIC NORMOCEPHALIC NECK : SUPPLE WITHOUT ADENOPATHY NO CAROTID BRUITS EYE:? EOMI, PERRLA, NORMAL CONJUNCTIVA; NO JAUNDICE CHEST:? REGULAR RATE.? ? NO RUBS.? PMI IS NON DISPLACED.? NO MURMURS; NORMAL S1-S2 PULMONARY:? DECREASED BS OVER THE BASES.? MILD BIBASILAR CRACKLES NOTED; NO INCREASED DULLNESS TO PERCUSSION ABDOMEN: ? SOFT.? NONTENDER.? NONDISTENDED.? BOWEL SOUNDS ARE PRESENT IN ALL 4 QUADRANTS.? NO MASS. EXTREMITIES:? EDEMA NOTED ON THE RIGHT LOWER EXTREMITY.?? REDNESS NOTED ON THE DORSUM OF THE FOOT IN PROXIMITY TO THE 2ND TOE ON THE RIGHT WITH EXTENSION TO THE? HIND? FOOT AND THE LEG POSTERIORLY..? ? HARD CALLUS ON THE PLANTAR OF THE FOOT AGAIN AT THE LEVEL OF THE 2ND TOE.? REDNESS/APPRECIATED.? OPEN?/? DRAINING BLISTERS APPRECIATED. MODERATE AMOUNT OF SEROUS DRAINAGE NEURO:? CRANIAL NERVES 2-12 GROSSLY INTACT. NO FOCAL NEUROLOGICAL DEFICIT NOTED. MSK:? NORMAL RANGE OF MOTION FOR AGE.? NO JOINT EFFUSION. SKIN: NO ECCHYMOSIS.? ? GOOD? TURGOR. :? NORMAL EXTERNAL GENITALIA. PSYCH :? APPROPRIATE MOOD AND AFFECT.? ALERT AWAKE ORIENTED X3 Objective Labs Result Diagrams: 10/20/21 11:50 10/19/21 04:40 Labs: Laboratory Results - last 24 hr 10/20/21 10/20/21 04:33 11:50 WBC 13.7 H RBC 4.11 L Hgb 12.6 L Hct 37.6 L MCV 91.5 MCH 30.6 MCHC 33.5 RDW 13.2 Plt Count 345 Neut % (Auto) Not Reportable Lymph % (Auto) Not Reportable [place] % (Auto) Not Reportable Eos % (Auto) Not Reportable Baso % (Auto) Not Reportable Lymph # (Auto) Not Reportable [place] # (Auto) Not Reportable Baso # (Auto) Not Reportable Total Counted 100 Seg Neutrophils % 62.0 Band Neutrophils % 2.0 L Lymphocytes % (Manual) 19.0 L Atypical Lymphs % 6.0 H Monocytes % (Manual) 10.0 Eosinophils % (Manual) 1.0 L Neutrophils # (Manual) 8768 H RBC Morphology Normal morphology Phosphorus 3.9 H Magnesium 2.1 PFSH Medical History Gout Hypertension Social History household members: spouse Smoking Status: Never smoker Discharge Plan Discharge Plan Patient Disposition: Home Discharge orders & Medications Prescriptions: New Bacid 1 billion cell- 250 mg Tablet 1 tab PO TIDWM Qty: 30 3RF famotidine [Pepcid AC] 20 mg Tablet 20 mg PO BID Qty: 60 2RF doxycycline hyclate 100 mg Tablet 100 mg PO BID Qty: 20 0RF clindamycin HCl 300 mg capsule 300 mg PO TID Qty: 30 0RF levofloxacin 750 mg tablet 750 mg PO DAILY 14 Days 0RF Continued allopurinol 100 mg tablet 100 mg PO DAILY 0RF amlodipine 10 mg tablet 10 mg PO DAILY 0RF Discontinued cephalexin 500 mg capsule 500 mg PO QID 10 Days Qty: 40 0RF Follow up/Referrals: Jimmy Cantu MD [Primary Care Provider] - Diet/Activity/Treatments Diet: Regular Activity: TOLERATED Discharge Data Primary Care Provider: Jimmy Cantu Quality VTE Deep Vein Thrombosis/Pulmonary Embolism Present on Admission: No
--- NOTE | 2021-10-20 21:02 | PC.NURSE ---
Addendum entered by Di Tamayo R.N. 10/20/21 21:05: Discharge instructions reviewed with patient and spouse. Original Note: Patient dischard with spouse at 2100, taken to private vehicle via wheelchair/DENTAL SURGERY DOCTOR transport. All items removed from room. Patient denies pain, discharges in stable condition.
== END 2021-10-20 21:00 | disposition home or self-care (01) | DRG 603 ==
LOC: ED 11:40 → AC 14:27
PROVIDERS: Admitting Provider Hospitalist; Emergency Provider Emergency Medicine; Family Provider Internal Medicine; PCP Internal Medicine; Referring Provider Emergency Medicine; Visit Provider Hospitalist
DX: L03.031 Cellulitis of right toe (principal); L03.115 Cellulitis of right lower limb; M10.9 Gout, unspecified; J43.9 Emphysema, unspecified; I10 Essential (primary) hypertension; Z20.822 Contact with and (suspected) exposure to COVID-19
CPT/HCPCS: 36415; 73701; 80053; 80202; 83605; 83735; 84100; 84145; 85007; 85025; 87040; 87070; 87075; 87205; 87635; 94760; 96365; 96366; 96367; 97162; 99284; C9803; A9270; J0692; J0696; J1650; Q9967

== ENCOUNTER → 2021-11-02 16:46 | Outpatient (CLI) | payer MEDICARE, OTHER, SELFPAY ==
[2021-10-19 07:06] VITALS: BMI 25.1
[2021-11-02 18:48] LABS: BUN Creatinine Ratio 16.6 (6-22); Blood Urea Nitrogen 48 mg/dL (9-20); Calcium 8.3 mg/dL (8.4-10.2); Carbon Dioxide 29 mmol/L (22-32); Chloride 109 mmol/L (98-107); Estimated Glomerular Filt Rate 21 mL/min (>60); Glucose 103 mg/dL (80-110); HEMOLYSIS < 15 (0-50); Potassium 3.9 mmol/L (3.4-5.1); Sodium 144 mmol/L (137-145)
== END ==
PROVIDERS: Family Provider Internal Medicine; PCP Internal Medicine; Referring Provider Surgery Vascular Surgery; Visit Provider Surgery Vascular Surgery
DX: L97.509 Non-pressure chronic ulcer of other part of unspecified foot with unspecified severity (principal)
CPT/HCPCS: 36415; 80048

== ENCOUNTER → 2021-11-09 09:10 | Outpatient (CLI) | payer MEDICARE, OTHER, SELFPAY ==
[2021-10-19 07:06] VITALS: BMI 25.1
[2021-11-09 10:25] LABS: Add Manual Diff / Slide Review NO; Basophils Absolute Auto 0 /uL (0-100); Basophils Percent Auto 0.6 % (0-2); Eosinophils Absolute Auto 500 /uL (0-450); Eosinophils Percent Auto 5.9 % (2-4); Hematocrit 32.5 % (41-53); Hemoglobin 11.1 g/dL (13.5-17.5); Lymphocytes Absolute Auto 1400 /uL (1100-4500); Mean Corpuscular Hemoglobin 30.6 PG (26-34); Monocytes Absolute Auto 700 /uL (0-900); Monocytes Percent Auto 9.2 % (3-14); Neutrophils Absolute Auto 5100 /uL (1500-7000); Neutrophils Percent Auto 66.3 % (50-75); Platelet Count 230 X10^3/uL (150-400); Red Blood Cell Count 3.61 X10^6/uL (4.5-5.9); Red Cell Distribution Width 13.1 % (11.6-14.8); White Blood Cell Count 7.7 X10^3/uL (4.5-11.0)
[2021-11-09 10:50] LABS: Alanine Aminotransferase 18 IU/L (<50); Albumin 3.3 g/dL (3.5-5.0); Alkaline Phosphatase 59 U/L (38-126); Aspartate Aminotransferase 23 IU/L (17-59); BUN Creatinine Ratio 18.6 (6-22); Bilirubin Total 0.5 mg/dL (0.2-1.3); Blood Urea Nitrogen 35 mg/dL (9-20); C-Reactive Protein Quant 2.7 mg/dL (<1.0); Carbon Dioxide 26 mmol/L (22-32); Chloride 105 mmol/L (98-107); Estimated Glomerular Filt Rate 34 mL/min (>60); Globulin 3.2 g/dL (1.7-4.1); Glucose 136 mg/dL (80-110); HEMOLYSIS < 15 (0-50); Potassium 3.6 mmol/L (3.4-5.1); Sodium 139 mmol/L (137-145); Total Protein 6.5 g/dL (6.3-8.2)
== END ==
PROVIDERS: Family Provider Internal Medicine; PCP Internal Medicine; Referring Provider Internal Medicine Infectious Disease; Visit Provider Internal Medicine Infectious Disease
DX: L08.9 Local infection of the skin and subcutaneous tissue, unspecified (principal)
CPT/HCPCS: 36415; 80053; 85025; 86140

== ENCOUNTER → 2021-11-09 10:11 | Outpatient (CLI) | payer MEDICARE, OTHER, SELFPAY ==
[2021-10-19 07:06] VITALS: BMI 25.1
== END ==
PROVIDERS: Family Provider Internal Medicine; PCP Internal Medicine; Referring Provider Internal Medicine; Visit Provider Family Medicine
DX: G62.9 Polyneuropathy, unspecified (principal); L97.514 Non-pressure chronic ulcer of other part of right foot with necrosis of bone; L08.89 Other specified local infections of the skin and subcutaneous tissue; M86.171 Other acute osteomyelitis, right ankle and foot; B95.62 Methicillin resistant Staphylococcus aureus infection as the cause of diseases classified elsewhere; I73.9 Peripheral vascular disease, unspecified; Z79.01 Long term (current) use of anticoagulants
CPT/HCPCS: 11043; 36415; 80053; 85025; 86140; 99204; 99213

== ENCOUNTER → 2021-11-16 10:42 | Outpatient (CLI) | payer MEDICARE, OTHER, SELFPAY ==
[2021-10-19 07:06] VITALS: BMI 25.1
== END ==
PROVIDERS: Family Provider Internal Medicine; PCP Internal Medicine; Referring Provider Internal Medicine; Visit Provider Family Medicine
DX: G62.9 Polyneuropathy, unspecified (principal); L97.512 Non-pressure chronic ulcer of other part of right foot with fat layer exposed; R60.0 Localized edema
CPT/HCPCS: 99213

== ENCOUNTER → 2021-11-28 11:17 | Outpatient (CLI) | payer MEDICARE, OTHER, SELFPAY ==
[2021-10-19 07:06] VITALS: BMI 25.1
[2021-11-28 11:47] LABS: Albumin 3.7 g/dL (3.5-5.0); BUN Creatinine Ratio 19.9 (6-22); Blood Urea Nitrogen 27 mg/dL (9-20); Calcium 8.6 mg/dL (8.4-10.2); Carbon Dioxide 29 mmol/L (22-32); Chloride 103 mmol/L (98-107); Estimated Glomerular Filt Rate 51 mL/min (>60); Glucose 114 mg/dL (80-110); HEMOLYSIS < 15 (0-50); Phosphorous 3.6 mg/dL (2.3-3.7); Potassium 4.1 mmol/L (3.4-5.1); Sodium 139 mmol/L (137-145)
== END ==
PROVIDERS: Family Provider Internal Medicine; PCP Internal Medicine; Referring Provider Internal Medicine Nephrology; Visit Provider Internal Medicine Nephrology
DX: N17.9 Acute kidney failure, unspecified (principal); M10.9 Gout, unspecified
CPT/HCPCS: 36415; 80069

== ENCOUNTER → 2021-12-17 09:19 | Outpatient (CLI) | payer MEDICARE, OTHER, SELFPAY ==
[2021-10-19 07:06] VITALS: BMI 25.1
== END ==
PROVIDERS: Family Provider Internal Medicine; PCP Internal Medicine; Referring Provider Internal Medicine; Visit Provider Family Medicine
DX: T81.31XA Disruption of external operation (surgical) wound, not elsewhere classified, initial encounter (principal); G62.9 Polyneuropathy, unspecified; I73.9 Peripheral vascular disease, unspecified; Z89.421 Acquired absence of other right toe(s)
CPT/HCPCS: 11042; 87070; 87205; 99213; 99214

== ENCOUNTER → 2021-12-28 09:44 | Outpatient (CLI) | payer MEDICARE, OTHER, SELFPAY ==
[2021-10-19 07:06] VITALS: BMI 25.1
== END ==
PROVIDERS: Family Provider Internal Medicine; PCP Internal Medicine; Referring Provider Internal Medicine; Visit Provider Family Medicine
DX: G60.9 Hereditary and idiopathic neuropathy, unspecified (principal); I73.9 Peripheral vascular disease, unspecified; Z89.421 Acquired absence of other right toe(s); T81.31XA Disruption of external operation (surgical) wound, not elsewhere classified, initial encounter; S91.301A Unspecified open wound, right foot, initial encounter
CPT/HCPCS: 11042; 97607

== ENCOUNTER → 2021-12-30 11:58 | Outpatient (CLI) | payer MEDICARE, OTHER, SELFPAY ==
[2021-10-19 07:06] VITALS: BMI 25.1
== END ==
PROVIDERS: Family Provider Internal Medicine; PCP Internal Medicine; Referring Provider Internal Medicine; Visit Provider Family Medicine
DX: T81.89XA Other complications of procedures, not elsewhere classified, initial encounter (principal); S91.301A Unspecified open wound, right foot, initial encounter; R60.0 Localized edema
CPT/HCPCS: 97607

== ENCOUNTER → 2022-01-06 12:01 | Outpatient (CLI) | payer MEDICARE, OTHER, SELFPAY ==
[2021-10-19 07:06] VITALS: BMI 25.1
== END ==
PROVIDERS: Family Provider Internal Medicine; PCP Internal Medicine; Referring Provider Internal Medicine; Visit Provider Family Medicine
DX: G60.9 Hereditary and idiopathic neuropathy, unspecified (principal); S91.301A Unspecified open wound, right foot, initial encounter; I73.9 Peripheral vascular disease, unspecified; Z89.421 Acquired absence of other right toe(s); T81.31XA Disruption of external operation (surgical) wound, not elsewhere classified, initial encounter
CPT/HCPCS: 11042; 97607

== ENCOUNTER → 2022-01-07 10:01 | Outpatient (CLI) | payer MEDICARE, OTHER, SELFPAY ==
[2021-10-19 07:06] VITALS: BMI 25.1
== END ==
PROVIDERS: Family Provider Internal Medicine; PCP Internal Medicine; Referring Provider Internal Medicine; Visit Provider Family Medicine
DX: S91.301A Unspecified open wound, right foot, initial encounter (principal)
CPT/HCPCS: 99212

== ENCOUNTER → 2022-01-12 13:39 | Outpatient (CLI) | payer MEDICARE, OTHER, SELFPAY ==
[2021-10-19 07:06] VITALS: BMI 25.1
== END ==
PROVIDERS: Family Provider Internal Medicine; PCP Internal Medicine; Referring Provider Internal Medicine; Visit Provider Family Medicine
DX: T87.81 Dehiscence of amputation stump (principal); G60.9 Hereditary and idiopathic neuropathy, unspecified; I73.9 Peripheral vascular disease, unspecified; Z89.421 Acquired absence of other right toe(s)
CPT/HCPCS: 99212; 99213

== ENCOUNTER → 2022-01-20 14:24 | Outpatient (CLI) | payer MEDICARE, OTHER, SELFPAY ==
[2021-10-19 07:06] VITALS: BMI 25.1
== END ==
PROVIDERS: Family Provider Internal Medicine; PCP Internal Medicine; Referring Provider Internal Medicine; Visit Provider Family Medicine
DX: T87.81 Dehiscence of amputation stump (principal); L08.9 Local infection of the skin and subcutaneous tissue, unspecified; I73.9 Peripheral vascular disease, unspecified; G60.9 Hereditary and idiopathic neuropathy, unspecified; Z89.421 Acquired absence of other right toe(s)
CPT/HCPCS: 99213; 99214

== ENCOUNTER → 2022-02-03 09:25 | Outpatient (CLI) | payer MEDICARE, OTHER, SELFPAY ==
[2021-10-19 07:06] VITALS: BMI 25.1
== END ==
PROVIDERS: Family Provider Internal Medicine; PCP Internal Medicine; Referring Provider Internal Medicine; Visit Provider Family Medicine
DX: S91.301D Unspecified open wound, right foot, subsequent encounter (principal); T81.31XD Disruption of external operation (surgical) wound, not elsewhere classified, subsequent encounter; Z89.421 Acquired absence of other right toe(s)
CPT/HCPCS: 99212; 99213

== ENCOUNTER → 2022-06-24 15:01 | Outpatient (CLI) | payer MEDICARE, OTHER, SELFPAY ==
[2021-10-19 07:06] VITALS: BMI 25.1
--- NOTE | 2022-06-24 | DI.RAD.S_ITS ---
PROCEDURE: XR SHOULDER LT MIN 2V INDICATIONS: acute pain of left shoulder TECHNIQUE: Three views of the shoulder were acquired. COMPARISON: None. FINDINGS: Bones: No fractures or dislocations. Severe glenohumeral disc space loss and prominent humeral head osteophyte. Sclerotic change and mild subcortical cystic change at the glenohumeral joint. Mild degeneration at the AC joint. No suspicious bony lesions. Visualized ribs appear intact. Soft tissues: No suspicious soft tissue calcifications. Small granuloma projecting over the left lateral upper lobe. IMPRESSION: 1. No acute fracture, dislocation, or separation. 2. 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 Dictated by: Lyndsey Ordoñez M.D. on 06/24/2022 at 17:32 Approved by: Lyndsey Ordoñez M.D. on 06/24/2022 at 17:33
== END ==
PROVIDERS: PCP Internal Medicine; Referring Provider Internal Medicine; Visit Provider Internal Medicine
DX: M25.512 Pain in left shoulder (principal)
CPT/HCPCS: 73030

== ENCOUNTER 2022-09-08 08:30 | Outpatient (RCR) | payer MEDICARE, OTHER, SELFPAY ==
[2021-10-19 07:06] VITALS: BMI 25.1
== END 2022-09-08 10:30 ==
LOC: CAR 08:30
PROVIDERS: PCP Internal Medicine; Referring Provider Internal Medicine; Visit Provider Internal Medicine
DX: Z95.5 Presence of coronary angioplasty implant and graft (principal)
CPT/HCPCS: 93798

== ENCOUNTER → 2022-10-06 08:46 | Outpatient (CLI) | payer MEDICARE, OTHER, SELFPAY ==
[2021-10-19 07:06] VITALS: BMI 25.1
[2022-10-06 09:41] LABS: Add Manual Diff / Slide Review NO; Basophils Absolute Auto 100 /uL (0-100); Basophils Percent Auto 0.8 % (0-2); Eosinophils Absolute Auto 1200 /uL (0-450); Eosinophils Percent Auto 13.1 % (2-4); Hematocrit 33.5 % (41-53); Hemoglobin 11.4 g/dL (13.5-17.5); Lymphocytes Absolute Auto 3200 /uL (1100-4500); Lymphocytes Percent Auto 34.8 % (25-40); Mean Corpuscular Hemoglobin 30.3 PG (26-34); Mean Corpuscular Volume 89.2 fL (80-100); Monocytes Absolute Auto 800 /uL (0-900); Neutrophils Absolute Auto 3900 /uL (1500-7000); Neutrophils Percent Auto 42.3 % (50-75); Platelet Count 247 X10^3/uL (150-400); Red Blood Cell Count 3.75 X10^6/uL (4.5-5.9); Red Cell Distribution Width 14.2 % (11.6-14.8); White Blood Cell Count 9.3 X10^3/uL (4.5-11.0)
[2022-10-06 10:00] LABS: BUN Creatinine Ratio 22.5 (6-22); Blood Urea Nitrogen 32 mg/dL (9-20); Calcium 8.6 mg/dL (8.4-10.2); Carbon Dioxide 27 mmol/L (22-32); Chloride 107 mmol/L (98-107); Cholesterol 108 mg/dL (140-199); Estimated Glomerular Filt Rate 48 mL/min (>60); Glucose 93 mg/dL (80-110); HDL Cholesterol 27 mg/dL (40-60); HEMOLYSIS 17 (0-50); LDL Cholesterol Calculated 53 mg/dL (<100); Potassium 4.6 mmol/L (3.4-5.1); Sodium 139 mmol/L (137-145); Triglycerides 141 mg/dL (35-150)
== END ==
PROVIDERS: PCP Internal Medicine; Referring Provider Internal Medicine Cardiovascular Disease; Visit Provider Internal Medicine Cardiovascular Disease
DX: I10 Essential (primary) hypertension (principal); E78.1 Pure hyperglyceridemia
CPT/HCPCS: 36415; 80048; 80061; 85025

== ENCOUNTER → 2022-11-18 12:59 | Outpatient (CLI) | payer MEDICARE, OTHER, SELFPAY ==
[2021-10-19 07:06] VITALS: BMI 25.1
--- NOTE | 2022-11-18 | DI.ECHO.S_ITS ---
[facility] +---------+ : : [address] : : : : [id number] : : : : Phone: [phone]+ Echocardiogram Report + + :Name: JUNE QUINTERO Study Date: 11/18/2022 Height: 73 in : :[facility] ReadingLocation: Weight: 184 lb : : Gender: Male BSA: 2.1 m2 : :: 1935 Age: 87 yrs BP: 144/73 mmHg: :Reason For Study: Ascending Aorta Dilation : :Ordering Physician: Zafar, : :Carina Performed By: Meron Alfaro : :Referring: CARINA STEPHEN : + + Interpretation Summary 1) Mildly increased left ventricular thickness (concentric) with normal size, normal wall motion, and normal systolic function (EF 60-65%). 2) Mildly enlarged right ventricle with normal function. 3) No significant valvular abnormalities. 4) The ascending aorta is mildly enlarged at 4.1cm. 5) Compared to the Echo done 10/12/2021, no significant change. Procedure: A two-dimensional transthoracic echocardiogram with color flow and Doppler was performed. The study quality was technically adequate. Comparison is made with the echocardiogram of 11/12/2021. The patient was in normal sinus rhythm during the exam. Left Ventricle: The left ventricle is normal in size. There is mild concentric left ventricular hypertrophy. The ejection fraction is estimated to be 60-65%. Left ventricular systolic function appears normal without focal wall motion abnormalities. Diastolic parameters suggest a relaxation abnormality of the left ventricle, consistent with probable normal filling pressures. Right Ventricle: The right ventricle is mildly dilated. The right ventricular systolic function is normal. Atria: The left atrial size is normal. Right atrial size is normal. There is no Doppler evidence for an interatrial shunt. Mitral Valve: The mitral valve is normal. There is no mitral valve stenosis. There is trace mitral regurgitation. Aortic Valve: The aortic valve is trileaflet. The aortic valve opens well. There is mild aortic valve sclerosis. There is no aortic valve stenosis. There is trace aortic regurgitation. Tricuspid Valve: The tricuspid valve is normal. There is no tricuspid stenosis. There is trace tricuspid regurgitation. Pulmonary artery pressures cannot be estimated because of the lack of a measurable TR jet velocity. Pulmonic Valve: The pulmonic valve leaflets are thin and pliable; valve motion is normal. There is no pulmonic valvular stenosis. There is trace pulmonic regurgitation. Great Vessels: The aortic root is normal size. The ascending aorta is normal in size. The pulmonary artery is normal size. The inferior vena cava was not well visualized. Pericardium/ Pleura There is no pericardial effusion. There is no pleural effusion. MMode/2D Measurements & Calculations LVIDd: 3.7 cm LVOT diam: 2.0 cm LVIDs: 2.2 cm Ao root diam: 3.3 cm FS: 40.5 % asc Aorta Diam: 4.1 cm IVSd: 1.4 cm LVPWd: 1.2 cm LV jewell. diameter/BSA (cm/m^2): 1.8 LV sys. diameter/BSA (cm/m^2): 1.1 LA A2 area: 21.1 cm2 RA long axis: 4.8 cm LA A4 area: 14.4 cm2 RA area: 16.6 cm2 LA length (vol): 6.0 cm RA vol: 49.1 ml LA vol: 43.3 ml RA : 23.6 ml/m2 LA vol index: 20.8 ml/m2 RVD1 (basal): 4.5 cm LVLs ap4: 6.8 cm LVLd ap2: 7.9 cm TAPSE_phl: 2.6 cm LVLs ap2: 6.1 cm Doppler Measurements & Calculations Ao V2 max: 143.0 cm/sec LVOT Max Hany: 116.0 cm/sec Ao V2 mean: 95.4 cm/sec LV V1 max P.4 mmHg Ao max P.0 mmHg LV V1 VTI: 28.8 cm Ao mean P.0 mmHg CLAIRE(I,D): 2.5 cm2 Ao V2 VTI: 36.4 cm CLAIRE(V,D): 2.5 cm2 sev ratio: 0.79 CLAIRE indexed to BSA (cm^2/m^2): 1.2 MV E max hany: 82.3 cm/sec PA V2 max: 103.0 cm/sec MV A max hany: 106.0 cm/sec PA V2 mean: 82.0 cm/sec MV E/A: 0.78 PA mean P.0 mmHg Med Peak E' Hany: 6.0 cm/sec PA pr(Accel): 32.6 mmHg E/E' med: 13.7 Lat Peak E' Hany: 8.5 cm/sec E/E' lat: 9.7 E/e' average: 11.7 MV dec time: 0.23 sec SV(LVOT): 90.5 ml AV VR_phl: 0.81 CLAIRE(VTI)/BSA_phl: 1.2 MV P1/2t-pr_phl: 66.0 msec Reading Physician:02:15 PM
== END ==
PROVIDERS: PCP Internal Medicine; Referring Provider Internal Medicine Cardiovascular Disease; Visit Provider Internal Medicine Cardiovascular Disease
DX: I77.810 Thoracic aortic ectasia (principal); I35.8 Other nonrheumatic aortic valve disorders
CPT/HCPCS: 93306

== ENCOUNTER → 2023-04-27 10:13 | Outpatient (CLI) | payer MEDICARE, OTHER, SELFPAY ==
[2021-10-19 07:06] VITALS: BMI 25.1
[2023-04-27 11:45] LABS: Hematocrit 39.1 % (41-53); Hemoglobin 13.2 g/dL (13.5-17.5); Mean Corpuscular HGB Conc 33.8 % (30-36); Mean Corpuscular Hemoglobin 30.7 PG (26-34); Mean Corpuscular Volume 90.7 fL (80-100); Platelet Count 249 X10^3/uL (150-400); Red Blood Cell Count 4.31 X10^6/uL (4.5-5.9); Red Cell Distribution Width 13.8 % (11.6-14.8)
[2023-04-27 12:01] LABS: Alanine Aminotransferase 20 IU/L (<50); Albumin 4.3 g/dL (3.5-5.0); Albumin Globulin Ratio 1.3 (1.0-2.8); Alkaline Phosphatase 45 U/L (38-126); Aspartate Aminotransferase 28 IU/L (17-59); BUN Creatinine Ratio 29.1 (6-22); Bilirubin Total 0.6 mg/dL (0.2-1.3); Blood Urea Nitrogen 37 mg/dL (9-20); Calcium 9.9 mg/dL (8.4-10.2); Carbon Dioxide 30 mmol/L (22-32); Chloride 102 mmol/L (98-107); Cholesterol 163 mg/dL (140-199); Estimated Glomerular Filt Rate 54 mL/min (>60); Globulin 3.2 g/dL (1.7-4.1); Glucose 105 mg/dL (80-110); HDL Cholesterol 34 mg/dL (40-60); HEMOLYSIS < 15 (0-50); LDL Cholesterol Calculated 82 mg/dL (<100); Sodium 137 mmol/L (137-145); Total Protein 7.5 g/dL (6.3-8.2); Triglycerides 233 mg/dL (35-150)
[2023-04-27 12:09] LABS: HEMOLYSIS < 15 (0-50); Iron 104 ug/dL (49-181)
[2023-04-27 12:20] LABS: Percent Iron Saturation 35 % (20-50); Total Iron Binding Capacity 296 ug/dL (261-462); Transferrin 256 mg/dL (206-381)
[2023-04-27 12:31] LABS: Prostate Specific Antigen 2.54 ng/mL (0.10-4.00)
[2023-04-27 12:36] LABS: Ferritin 66 ng/mL (18-464)
[2023-04-27 12:37] LABS: TSH w/ Reflex to FT4 3.91 uIU/mL (0.47-4.68)
[2023-04-27 12:50] LABS: Vitamin B12 571 pg/mL (239-931)
== END ==
PROVIDERS: PCP Internal Medicine; Referring Provider Internal Medicine; Visit Provider Internal Medicine
DX: N18.32 Chronic kidney disease, stage 3b (principal); I10 Essential (primary) hypertension; N18.9 Chronic kidney disease, unspecified; D63.1 Anemia in chronic kidney disease; E53.8 Deficiency of other specified B group vitamins; N40.1 Benign prostatic hyperplasia with lower urinary tract symptoms
CPT/HCPCS: 36415; 80053; 80061; 82607; 82728; 83540; 83550; 84153; 84443; 85027

== ENCOUNTER → 2023-12-09 09:45 | Outpatient (CLI) | payer MEDICARE, OTHER, SELFPAY ==
[2023-08-16 08:44] VITALS: BMI 25.1
[2023-12-09 10:43] LABS: Add Manual Diff / Slide Review NO; Basophils Absolute Auto 0 /uL (0-100); Basophils Percent Auto 0.5 % (0-2); Eosinophils Absolute Auto 300 /uL (0-450); Eosinophils Percent Auto 4.1 % (2-4); Hematocrit 37.8 % (41-53); Hemoglobin 12.8 g/dL (13.5-17.5); Lymphocytes Absolute Auto 2800 /uL (1100-4500); Lymphocytes Percent Auto 40.7 % (25-40); Mean Corpuscular Hemoglobin 31.4 PG (26-34); Mean Corpuscular Volume 92.5 fL (80-100); Monocytes Absolute Auto 700 /uL (0-900); Monocytes Percent Auto 10.6 % (3-14); Neutrophils Absolute Auto 3000 /uL (1500-7000); Neutrophils Percent Auto 44.1 % (50-75); Platelet Count 212 X10^3/uL (150-400); Red Blood Cell Count 4.09 X10^6/uL (4.5-5.9); Red Cell Distribution Width 13.6 % (11.6-14.8); White Blood Cell Count 6.9 X10^3/uL (4.5-11.0)
[2023-12-09 11:15] LABS: BUN Creatinine Ratio 24.8 (6-22); Blood Urea Nitrogen 32 mg/dL (9-20); Calcium 8.8 mg/dL (8.4-10.2); Carbon Dioxide 31 mmol/L (22-32); Chloride 106 mmol/L (98-107); Estimated Glomerular Filt Rate 53 mL/min (>60); Glucose 114 mg/dL (80-110); HDL Cholesterol 34 mg/dL (40-60); HEMOLYSIS 17 (0-50); Potassium 4.3 mmol/L (3.4-5.1); Sodium 139 mmol/L (137-145); Triglycerides 160 mg/dL (35-150)
[2023-12-09 12:43] LABS: Cholesterol 134 mg/dL (140-199); LDL Cholesterol Calculated 68 mg/dL (<100)
== END ==
LOC: LAB 09:47
PROVIDERS: PCP Internal Medicine; Referring Provider Internal Medicine Cardiovascular Disease; Visit Provider Internal Medicine Cardiovascular Disease
DX: I25.10 Atherosclerotic heart disease of native coronary artery without angina pectoris (principal)
CPT/HCPCS: 36415; 80048; 80061; 85025

== ENCOUNTER → 2024-05-08 10:47 | Outpatient (CLI) | payer MEDICARE, OTHER, SELFPAY ==
[2023-08-16 08:44] VITALS: BMI 25.1
[2024-05-08 11:50] LABS: Hemoglobin 13.8 g/dL (13.5-17.5); Mean Corpuscular HGB Conc 33.7 % (30-36); Platelet Count 230 X10^3/uL (150-400); Red Blood Cell Count 4.46 X10^6/uL (4.5-5.9); Red Cell Distribution Width 13.4 % (11.6-14.8); White Blood Cell Count 7.8 X10^3/uL (4.5-11.0)
[2024-05-08 12:10] LABS: BUN Creatinine Ratio 25.6 (6-22); Blood Urea Nitrogen 30 mg/dL (9-20); Calcium 9.2 mg/dL (8.4-10.2); Carbon Dioxide 29 mmol/L (22-32); Chloride 104 mmol/L (98-107); Estimated Glomerular Filt Rate 60 mL/min (>60); Glucose 90 mg/dL (80-110); HEMOLYSIS < 15 (0-50); Potassium 4.8 mmol/L (3.4-5.1); Sodium 135 mmol/L (137-145)
== END ==
PROVIDERS: PCP Internal Medicine; Referring Provider Internal Medicine; Visit Provider Internal Medicine
DX: N18.32 Chronic kidney disease, stage 3b (principal); D63.1 Anemia in chronic kidney disease
CPT/HCPCS: 36415; 80048; 85027

== ENCOUNTER → 2025-01-08 09:42 | Outpatient (CLI) | payer MEDICARE, OTHER, SELFPAY ==
[2023-08-16 08:44] VITALS: BMI 25.1
[2025-01-08 10:56] LABS: Hematocrit 41.3 % (41-53); Hemoglobin 13.9 g/dL (13.5-17.5); Mean Corpuscular HGB Conc 33.7 % (30-36); Mean Corpuscular Hemoglobin 31.4 PG (26-34); Mean Corpuscular Volume 93.1 fL (80-100); Platelet Count 200 X10^3/uL (150-400)
[2025-01-08 11:29] LABS: Blood Urea Nitrogen 23 mg/dL (9-20); Calcium 8.8 mg/dL (8.4-10.2); Carbon Dioxide 27 mmol/L (22-32); Chloride 105 mmol/L (98-107); Cholesterol 127 mg/dL (140-199); Estimated Glomerular Filt Rate > 60 mL/min (>60); Glucose 101 mg/dL (70-99); HDL Cholesterol 36 mg/dL (40-60); HEMOLYSIS < 15 (0-50); Potassium 4.2 mmol/L (3.4-5.1); Sodium 138 mmol/L (137-145); Triglycerides 159 mg/dL (35-150)
== END ==
PROVIDERS: PCP Internal Medicine; Referring Provider Internal Medicine Cardiovascular Disease; Visit Provider Internal Medicine Cardiovascular Disease
DX: I25.10 Atherosclerotic heart disease of native coronary artery without angina pectoris (principal)
CPT/HCPCS: 36415; 80048; 80061; 85027